=== PATIENT | female | born 1950 | race Caucasian/White ===

== ENCOUNTER 2022-06-02 14:30 | Outpatient (RCR) | payer OTHER, SELFPAY | END 2022-08-30 23:59 | disposition home or self-care (01) | LOC: CCIC 14:30 | PROVIDERS: PCP Physician Assistant Medical; Visit Provider Internal Medicine Hematology & Oncology | DX: C50.912 Malignant neoplasm of unspecified site of left female breast (principal); Z17.0 Estrogen receptor positive status [ER+]; Z79.811 Long term (current) use of aromatase inhibitors; M85.80 Other specified disorders of bone density and structure, unspecified site; R23.2 Flushing | CPT/HCPCS: 99212; 99213; 99214 ==

== ENCOUNTER 2022-07-10 12:41 | Outpatient (CLI) | payer OTHER, SELFPAY ==
--- OUTSIDE RECORDS SUMMARY | 2022-01-16 10:30 | XMS_ITS | Continuity of Care Document ---
:1950 Author Allergies, Adverse Reactions, Alerts No known allergies Social History Smoking Status Status Start Date End Date Date of Observat ion Never smoked tobacco July 7:07am (finding) Additional Data Assigned Sex Female Medications Medication Status Dose Units Route Directions Qty Days Start End Ins tructions Date Date Acetaminophen Active 650 MG PO as needed (Tylenol 8 Hour Arthritis) 650 Mg TAB Anastrozole Active 1 MG PO Daily September (Arimidex) 1 15, Mg TAB 2021 12:12p m Ascorbic Acid Active 500 MG PO Daily 100 (Vitamin C) 500 Mg TAB Calcium Active 600 MG PO Twice A Day 100 Carbonate Cholecalcifer Active 1000 UNIT PO Daily 100 ol (Vitamin D) 1,000 Unit TAB Cyanocobalami Active 100 MCG PO Daily n (Vitamin B12) 100 Mcg TAB Cyclobenzapri Active 5 MG PO Twice A Day 30 ne Hcl as needed Ibuprofen Active 400 MG PO Every 6 100 Hours as needed Loperamide Active 2 MG PO As Needed Hcl (Imodium) 2 Mg CAP Magnesium Active 400 MG PO Twice A Day 100 Alana Oxide 2019 2:56pm Metoprolol Active 50 MG PO Daily 60 Tartrate Multivitamins Active 1 TAB PO Daily 100 (Multivitamin /Minerals) TAB Triamterene/H Active 1 TAB PO Daily 1 ctz (Maxzide) 37.5 Mg/25 Mg TAB Zyquil Active 30 ML PO Bedtime Anastrozole Discontin 1 MG PO Daily October (Arimidex) 1 ued , 15th, Mg TAB 2020 2021 11:49a 12:12pm m Anastrozole Discontin 1 MG PO Daily October (Arimidex) 1 ued 24, th, Mg TAB 2018 2020 3:09pm 11:49am Hydrochloroth Discontin 0 PO Daily 17 August iazide ued 2018 11:53am Metoprolol Discontin 0 PO Twice A Day 60 Janua ry Tartrate ued 2018 11:53am Valacyclovir Discontin 1 GRAMS PO Three Times January uary Hcl (Valtrex) ued A Day , 1 Gm TAB 2017 2018 11:04a 7:10am m Advance Directives Advance Directive Response Recorded Date/Time Does Pt have Health Care No May 09, 008 8:39am Directive? Has patient completed a No July 26 201 9 7:07am Health Care Directive? Insurance Providers Guarantor Denise Munroe Address [address] [place], [place] [id number] Contact Info. Home Phone: Payer Policy Id Coverage Id Subscriber's Subscriber Id Effective E xpiration Name Date Date [facility] [id number] Denise Munroe [id number] [employer]
--- NOTE | 2022-07-10 13:00 | CRLHL7_ITS ---
For Patients: As a result of the Cures Act, medical imaging exams and procedure reports are released immediately into your electronic medical record. You may view this report before your referring provider. If you have questions, please contact your health care provider. BILATERAL SCREENING MAMMOGRAM WITH COMPUTER-AIDED DETECTION AND TOMOSYNTHESIS TECHNIQUE: CC and MLO views were obtained. These mammographic images have been obtained using full-field digital technique. These mammographic images were interpreted with the benefit of computer-aided detection. Breast Tomosynthesis was used in this interpretation. COMPARISON FILM: 07/09/21, 07/08/20, 07/06/19. FINDINGS: There are scattered areas of fibroglandular density. IMPRESSION: There is no radiographic evidence for malignancy. ASSESSMENT: BI-RADS Category 1: Negative RECOMMENDATION: Routine screening mammogram in 1 year. A lay language report of this examination will be provided to the patient. Osorio Cancino M.D. Diagnostic Radiologist [email or web address] DONNA/[email or web address] Transcribed: 9:50 a.m. PT/Dictated by: Osorio Cancino MD @ 07/14/2022 8:23:00 AM (Electronically Signed)
== END 2022-07-10 12:42 | disposition home or self-care (01) ==
PROVIDERS: PCP Physician Assistant Medical; Visit Provider Internal Medicine Hematology & Oncology
DX: Z12.31 Encounter for screening mammogram for malignant neoplasm of breast (principal)
CPT/HCPCS: 77063; 77067

== ENCOUNTER 2023-02-10 14:43 | Outpatient (CLI) | payer MEDICARE, BC, SELFPAY ==
--- NOTE | 2023-02-10 15:00 | CRLHL7_ITS ---
For Patients: As a result of the Cures Act, medical imaging exams and procedure reports are released immediately into your electronic medical record. You may view this report before your referring provider. If you have questions, please contact your health care provider. DXA BONE MINERAL DENSITY STUDY, 02/10/2023 Current height (in): 63.0. Weight (lb): 240.0. Menopause age: 56. Ethnicity: White. 1. Have you had a previous hip or vertebral fracture? No. 2. Have you had any fractures during your adult life which did not result from significant trauma (e.g., auto accident)? No. 3. Did either of your parents have a hip fracture? No. 4. Do you smoke? No. 5. Have you ever taken Glucocorticoids? No. 6. Do you have rheumatoid arthritis? No. 7. Do you have secondary osteoporosis? No. 8. Do you drink 3 or more alcoholic drinks per day? No. 9. Are you being treated for osteoporosis? No. 10. Have you ever taken any of the following medications: Actonel, Evista, Fosamax, Miacalcin, Reclast, Boniva, Forteo, HRT (i.e. estrogen/hormone therapy), Protelos, Prolia, Vitamin D, Calcium, other ??? please specify. ANSWER: Yes, Vitamin D and Calcium. 11. Do you have any of the following medical conditions: Anorexia or bulimia, asthma or emphysema, end stage renal disease, hyperparathyroidism, any seizure disorders, cancer, inflammatory bowel diseases, hysterectomy, other ??? please specify. ANSWER: Yes, Cancer and hysterectomy. 12. What was your maximum height (inches)? 65. 13. Do you perform weight bearing exercise regularly? Yes. 14. Do you regularly consume dairy products? Yes. 15. Do you drink caffeinated beverages? Yes. If female: 16. At what age did your period start? 13. 17. Are you premenopausal? No. 18. How many full term pregnancies have you had? 3. 19. Have you ever missed your period for more than 6 months in a row (not including or menopause)? No. TECHNIQUE: Bone mineral density study was performed using the [employer]. FINDINGS: The results of the study expressed as bone mineral density (BMD) are as follows: Lumbar spine L1, L3, L4: BMD: 0.954 g/cm2. T-score: -0.9. Z-score: 1.3. Neck Left: BMD: 0.732 g/cm2. T-score: -1.1. Z-score: 0.8. Right: BMD: 0.771 g/cm2. T-score: -0.7. Z-score: 1.2. Total Left: BMD: 0.796 g/cm2. T-score: -1.2. Z-score: 0.4. Right: BMD: 0.822 g/cm2. T-score: -1.0. Z-score: 0.6. IMPRESSION: Osteopenia. *Comparison exams done prior to 12/2019 were performed on different unit, [employer] COMPARISON: Compared with scan of 10/10/2020, the bone mineral density has increased by 3.4 percent at the spine and decreased by 5.6 percent at the hip. Osorio Cancino M.D. Diagnostic Radiologist [email or web address] DONNA/[email or web address] JR/Dictated by: Osorio Cancino MD @ 02/11/2023 9:30:00 AM (Electronically Signed)
== END 2023-02-10 14:44 | disposition home or self-care (01) ==
PROVIDERS: PCP Physician Assistant Medical; Visit Provider Internal Medicine Hematology & Oncology
DX: C50.912 Malignant neoplasm of unspecified site of left female breast (principal); M85.89 Other specified disorders of bone density and structure, multiple sites
CPT/HCPCS: 77080

== ENCOUNTER 2023-02-18 06:38 | Day surgery (SDC) | payer MEDICARE, BC, SELFPAY ==
[2023-02-18] MEDS: LACTATED RINGERS 1000 ML 1,000 ML 100 ML IV (06:50)
[2023-02-18 07:21] VITALS: BP 129/84; PULSE 80; RESP 16; TEMP 36.7; O2SAT 95; BMI 45.0
[2023-02-18] MEDS: SODIUM CHLORIDE 0.9 % (FLUSH) 10 ML SYRINGE IVF (07:24)
--- NOTE | 2023-02-18 07:45 | CRLHL7_ITS ---
For Patients: As a result of the Century Cures Act, medical imaging exams and procedure reports are released immediately into your electronic medical record. You may view this report before your referring provider. If you have questions, please contact your health care provider. Indication: PORTACATH PLACEMENT Technique: One fluoroscopic image of the chest. Fluoroscopic time 61.2 seconds. IMPRESSION: Fluoroscopic guidance for Port-A-Cath placement. Dictated by Osorio Cancino MD @ 02/18/2023 9:12:22 AM (Electronically Signed)
[2023-02-18] MEDS: CEFAZOLIN 2 GM INJ IVP (07:55)
[2023-02-18] MEDS: LIDOCAINE 1 % PF 30 ML INJECTION (08:07)
[2023-02-18] MEDS: BUPIVACAINE 0.5% 30 ML INJECTION (08:07)
[2023-02-18] MEDS: 0.9 % SODIUM CHLORIDE 50 ml INJECTION (08:25)
[2023-02-18] MEDS: HEPARIN 500 UNIT/5 ML SYRINGE IVF (08:26)
--- NOTE | 2023-02-18 08:38 | PM.GSPRC ---
Operative Note Pre-op diagnosis: Endometrial carcinoma Post-op diagnosis: Same Type of Procedure: Right port a catheter placement Indications: Patient is a 72-year-old female with new diagnosis endometrial carcinoma. She is being followed by medical oncology, who recommended port a catheter placement for initiation of chemotherapy. Risks and benefits of the procedure were discussed at length the patient. Risks included, but were not limited to: Bleeding, infection, risk of damage to surrounding structures and possible need for additional procedures. All questions and concerns were addressed with patient agreeing to proceed. Procedure Description: After discussing the risks and benefits of the procedure, the patient signed informed consent.? The operative site was marked and the patient was brought to the operating room and placed on the operating table in supine position.? Care was taken to pad the patient's pressure points.?? The patient was then given sedation by anesthesia.?? The operative site was then prepped and draped in the usual sterile fashion.? A time-out was then performed. The patient's right internal jugular vein was visualized using ultrasound. Local anesthetic was injected into the neck skin above the vein. A skin chandler was made with an 11 blade. The vein was accessed percutaneously via Seldinger technique using ultrasound guidance. Placement of the wire was confirmed with C-arm. Next local anesthetic was injected into the skin below the clavicle and along the proposed tract to the neck incision. A skin incision was then made with a 15 blade and a pocket created in the chest wall with cautery. A tunneler was then used to thread the catheter from the chest wall pocket to the neck incision. Once this was done fluoroscopy was brought into the field. Over the wire the tract was dilated using fluoroscopy. The wire and the dilator were then removed leaving the sheath intact in the vein. Through this the catheter was threaded. Using fluoroscopy the catheter was positioned into the distal SVC. The catheter was noted to flush and aspirate easily. The catheter was then connected to the port. The port was placed in the pocket and secured in place with 2 0 Prolene stay suture. It was noted to flush and aspirate easily. This was then locked with heparinized saline. The skin was closed with absorbable suture. Sterile dressings were applied. Instrument sponge and needle counts were correct at the end of the case. The patient was woken and taken to the PACU in stable condition. Findings: Compressible right internal jugular vein. Anesthesia: MAC and local Surgeon: Edna Canchola MD Estimated blood loss (mL): 5 Condition: stable Disposition: same day
[2023-02-18 08:39] VITALS: BP 127/71; PULSE 70; RESP 16; TEMP 36.3; O2SAT 96
--- NOTE | 2023-02-18 08:42 | W.ANESCHARGE ---
Anesthesia Charges Start Date/Time Anesthesia Start Date: 02/18/23 Anesthesia Start Time: 07:49 Stop Date/Time Anesthesia Stop Date: 02/18/23 Anesthesia Stop Time: 08:42 Summary Extremes of Age - Over 70 or under 1: MDA
--- NOTE | 2023-02-18 08:44 | W.ANESCHARGE ---
Anesthesia Charges Start Date/Time Anesthesia Start Date: 02/18/23 Anesthesia Start Time: 07:49 Stop Date/Time Anesthesia Stop Date: 02/18/23 Anesthesia Stop Time: 08:42 Summary Extremes of Age - Over 70 or under 1: [employer]
[2023-02-18 09:19] VITALS: BP 127/70; PULSE 77; RESP 16
== END 2023-02-18 09:30 | disposition home or self-care (01) ==
PROVIDERS: PCP Physician Assistant Medical; Visit Provider Surgery
PROC: (CPT 36561; principal; 2023-02-18 07:45)
DX: Z45.2 Encounter for adjustment and management of vascular access device (principal); C54.1 Malignant neoplasm of endometrium
CPT/HCPCS: 36561; 00532; 71045; 76000; 99100; C1788; J0665; J0690; J1100; J1642; J2001; J2405; J2704; J3010; J7120

== ENCOUNTER 2023-04-07 13:30 | Outpatient (RCR) | payer MEDICARE, OTHER, BC, SELFPAY ==
--- NOTE | 2023-02-08 14:18 | ONC.NURNOTE ---
New chemo start teaching with patient and her daughter Reviewed Treatment schedule and medications, including premeds and neulasta reviewed possible side effects, after hours management, self care at home, reviewed new treatment binder contents questions addressed consents and YOLA signed
--- NOTE | 2023-02-08 14:22 | ONC.NURNOTE ---
PSDS +1 no problems listed no SS consult imitated- patient declined
--- NOTE | 2023-02-11 10:57 | URNOTE ---
Received request for prior auth for Carboplatin ([id number]), Paclitaxol ([id number]), Emend ([id number]), Aloxi ([id number]) and Pegfilgrastim ([id number]). Pt has medicare primary. Prior authorization is not required as services are based on medical necessity and follow medicare guidelines.
--- NOTE | 2023-02-12 14:38 | ONC.NURNOTE ---
Going through authorizations it was noted that patient was not scheduled. She notes that she is waiting to hear back from surgery for her port placement prior to starting chemotherapy. She was instructed to contact our office if she does not hear from them by the end of Wednesday.
[2023-02-24 08:51] LABS: Basophils Absolute Auto 0.06 K/uL (0.00-0.30); Basophils Percent Auto 1.1 % (0.0-3.0); Eosinophils Absolute Auto 0.27 K/uL (0.00-0.50); Eosinophils Percent Auto 5.1 % (0.0-7.0); Hematocrit 37.8 % (33.0-51.0); Immature Granulocytes Abs Auto 0.01 K/uL (0.00-0.30); Immature Granulocytes Pct Auto 0.2 %; Lymphocytes Absolute Auto 1.13 K/uL (0.90-2.90); Lymphocytes Percent Auto 21.5 % (20-44); Mean Corpuscular HGB Conc 32 gm/dL (32-36); Mean Corpuscular Hemoglobin 29 pg (26-34); Mean Corpuscular Volume 92 fL (80-100); Neutrophils Absolute Auto 3.31 K/uL (1.7-7.0); Neutrophils Percent Auto 63.1 % (42.0-72.0); Platelet Count* 205 K/uL (140-440); RDW Coefficient of Variation % 12.6 % (11.5-15.5); Red Blood Count 4.11 m/uL (4.00-5.20); Slide Review Reflex No; White Blood Count* 5.25 K/uL (4.50-11.00)
[2023-02-24 08:59] VITALS: BP 119/75; PULSE 77; RESP 16; TEMP 36.6; O2SAT 94
[2023-02-24 09:09] LABS: Albumin* 3.8 g/dL (3.3-5.0); Chloride* 101 mmol/L (96-114)
[2023-02-24 09:10] LABS: Potassium* 3.2 mmol/L (3.6-5.1); Sodium* 135 mmol/L (135-149)
[2023-02-24 09:12] LABS: Bilirubin Total* 0.6 mg/dL (0.1-1.5); Carbon Dioxide* 25 mmol/L (20-32); Estimated Glomerular Filt Rate 60 ml/min
[2023-02-24 09:13] LABS: Alanine Aminotransferase* 21 U/L (4-35); Alkaline Phosphatase* 75 U/L (40-150); Aspartate Amino Transferase* 24 U/L (12-35); Blood Urea Nitrogen* 16 mg/dL (7-30); Calcium* 9.4 mg/dL (8.4-10.6); Glucose* 99 mg/dL (60-115); Total Protein* 6.6 g/dL (6.0-8.3)
[2023-02-24] MEDS: dexAMETHasone 20 MG in 0.9 % SODIUM CHLORIDE 100 ml 100 ML 408 MG IVPB (10:22)
[2023-02-24] MEDS: PALONOSETRON 0.25 MG/5 ML inj IV (10:22)
[2023-02-24] MEDS: FAMOTIDINE 20 MG, diphenhydrAMINE 50 MG in 0.9 % SODIUM CHLORIDE 100 ml 100 ML 309 MG IVPB (10:45)
[2023-02-24] MEDS: FOSAPREPITANT 150 MG inj 150 MG in 0.9 % SODIUM CHLORIDE 250 ml 250 ML 510 MG IVPB (11:09)
--- NOTE | 2023-02-24 15:53 | ONC.NURNOTE ---
Pt here for nova 1 Taxol/Carbo. Pt tolerated infusion well without difficulty. Pt given calendar on when to take antiemetics. Script for potassium sent to pt's pharmacy by Crystal Pandey APRN due to potassium of 3.2. Pt to return in 1 week for BMP draw. Pt and her daughter verbalized understanding of plan of care.
[2023-02-25 15:12] VITALS: BP 129/76; PULSE 94; RESP 18; TEMP 36.6; O2SAT 98
[2023-02-25] MEDS: PEGFILGRASTIM 6 MG/0.6 ML SYRINGE SUBCUT (15:32)
--- NOTE | 2023-02-25 15:38 | ONC.NURNOTE ---
Addendum entered by Jessy Parham RN 02/25/23 15:45: Checked in with pt to see how she was feeling after receiving 1st Taxol/Carbo yesterday. See note from Katalina. Pt is taking antiemetics as recommended. Denies fever, nausea. Face slightly flushed today. Pt instructed to call if she has any questions or concerns. Original Note: Patient stated she is up 9lbs in 1 week. Denies shortness of breath. Vital signs within normal limits. Stated she has been drinking a lot more lately to stay hydrated. Also got a lot of fluids with her infusions yesterday. Noticed more ankle swelling today. Is on a diuretic. Recommended patient notify her PCP about this. Patient agreeable to this plan.
[2023-02-26 03:55] LABS: Cancer Antigen 125 13 U/mL (<=38)
[2023-03-03 11:42] LABS: Sodium* 139 mmol/L (135-149)
[2023-03-03 12:00] LABS: Chloride* 98 mmol/L (96-114)
[2023-03-03 12:03] LABS: Blood Urea Nitrogen* 26 mg/dL (7-30); Calcium* 10.5 mg/dL (8.4-10.6); Carbon Dioxide* 28 mmol/L (20-32); Creatinine* 1.1 mg/dL (0.5-1.5); Estimated Glomerular Filt Rate 54 ml/min; Glucose* 113 mg/dL (60-115)
--- NOTE | 2023-03-03 14:23 | PC.NURSE ---
Addendum entered by Nicki Rios RN 03/08/23 08:38: In addition to items discussed in below note, RN instructed pt to stop oral Potassium due to potassium lab at 5.0. Pt verbalized understanding. Original Note: Pt present at [facility] for repeat labs (BMP). Denise reports the following symptoms: Diarrhea - Started 8/15 PM. Pt took Imodium x 1 tab at 0700 and 0900 today. No stools since 1000 today. RN did teaching about use of Imodium. Mouth sore (1) - Using baking soda rinse. RN recommended adding salt to the rinse. The one mouth sore is not impacting her oral intake. Heartburn - Using TUMS occasionally. Noted significant increase in heartburn since chemo. Discussed with Crystal Gupta APRN. MAR reviewed. Recommended pt get OTC Pepcid and use until her next visit with MD and discuss further. Severe knee pain on Wednesday and Wednesday - Pt using Claritin after Neulasta injection. Asked about Ibuprofen and Tylenol use. RN did teaching about how to use those OTC medications. Also encouraged pt to discuss with MD prior to next treatment. Extreme hot flashes - Discussed wearing cotton or moisture wicking clothing to bed. Pt has a ceiling fan. Offered suggestion of Soma Cool Nights pajamas. Fatigue - Much improved today. Was VERY fatigued Wednesday-Wednesday. Support offered.
[2023-03-18 08:14] LABS: Basophils Percent Auto 0.9 % (0.0-3.0); Eosinophils Percent Auto 0.9 % (0.0-7.0); Hematocrit 36.6 % (33.0-51.0); Hemoglobin* 11.7 gm/dL (12.0-16.0); Immature Granulocytes Pct Auto 0.5 %; Lymphocytes Percent Auto 36.4 % (20-44); Mean Corpuscular HGB Conc 32 gm/dL (32-36); Mean Corpuscular Hemoglobin 30 pg (26-34); Mean Corpuscular Volume 93 fL (80-100); Neutrophils Percent Auto 51.3 % (42.0-72.0); Platelet Count* 359 K/uL (140-440); RDW Coefficient of Variation % 13.6 % (11.5-15.5); Red Blood Count 3.94 m/uL (4.00-5.20); White Blood Count* 4.42 K/uL (4.50-11.00)
[2023-03-18 08:23] LABS: Slide Review Reflex No
[2023-03-18 08:26] LABS: Albumin* 3.9 g/dL (3.3-5.0); Chloride* 104 mmol/L (96-114); Potassium* 3.4 mmol/L (3.6-5.1); Sodium* 142 mmol/L (135-149)
[2023-03-18 08:29] LABS: Alanine Aminotransferase* 24 U/L (4-35); Alkaline Phosphatase* 84 U/L (40-150); Anion Gap 11 mEq/L (7-15); Aspartate Amino Transferase* 28 U/L (12-35); Bilirubin Total* 0.4 mg/dL (0.1-1.5); Blood Urea Nitrogen* 24 mg/dL (7-30); Carbon Dioxide* 27 mmol/L (20-32); Creatinine* 1.2 mg/dL (0.5-1.5); Estimated Glomerular Filt Rate 48 ml/min; Glucose* 106 mg/dL (60-115); Total Protein* 6.8 g/dL (6.0-8.3)
[2023-03-18 08:30] LABS: Calcium* 10.3 mg/dL (8.4-10.6)
[2023-03-18] MEDS: PALONOSETRON 0.25 MG/5 ML inj IV (09:38)
[2023-03-18] MEDS: dexAMETHasone 20 MG in 0.9 % SODIUM CHLORIDE 100 ml 100 ML 408 MG IVPB (09:38)
[2023-03-18] MEDS: FOSAPREPITANT 150 MG inj 150 MG in 0.9 % SODIUM CHLORIDE 250 ml 250 ML 780 MG IVPB (10:04)
[2023-03-18] MEDS: FAMOTIDINE 20 MG, diphenhydrAMINE 50 MG in 0.9 % SODIUM CHLORIDE 100 ml 100 ML 309 MG IVPB (10:30)
[2023-03-18 11:20] VITALS: BP 146/86; PULSE 67; RESP 20; O2SAT 97
[2023-03-18 11:25] VITALS: BP 117/66; PULSE 73; RESP 16; TEMP 36.6; O2SAT 100
[2023-03-18] MEDS: METHYLPREDNISOLONE SOD SUCC 40 MG/ML IVP (11:42)
[2023-03-18 11:46] VITALS: BP 117/75; PULSE 76; RESP 16; O2SAT 96
[2023-03-18 12:11] VITALS: BP 126/85; PULSE 64; RESP 16; TEMP 36.4; O2SAT 97
[2023-03-18 12:37] VITALS: BP 122/75; PULSE 68; RESP 16; O2SAT 93
[2023-03-18 12:59] VITALS: BP 129/79; PULSE 66; RESP 16; O2SAT 93
--- NOTE | 2023-03-18 14:31 | URNOTE ---
Received request for prior auth for Granix. Pt has medicare and [employer]. Prior authorization is not required as services are based on medical necessity and follow medicare guidelines.
[2023-03-18] MEDS: SODIUM CHLORIDE 0.9% IVPB (15:41)
[2023-03-18] MEDS: TUBING SECONDARY IVPB (15:41)
[2023-03-18] MEDS: CARBOPLATIN IVPB (15:41)
--- NOTE | 2023-03-19 07:52 | ONC.NURNOTE ---
Late entry: Pt here for Cycle 2 Taxol/Carbo on 03/18/23. Approximately 15 min into Taxol infusion pt had call light on, face flushed and hot, pt c/o back pain, chils. Taxol stopped, NS started. Biomedical Engineering Aide notified Crystal Burnett APRN immediately and she assessed pt at bedside. VSS remained stable. Solucortef 40mg IV once, symptoms completely resolved after 30min. Taxol restarted at 50%, and increased gradually to max rate. Pt tolerated remainder of Taxol infusion without difficulty.
[2023-03-19 15:00] VITALS: BP 131/74; PULSE 92; RESP 16; TEMP 36.1; O2SAT 96
[2023-03-19] MEDS: TBO-FILGRASTIM 480 MCG/0.8 ML SYRINGE SUBCUT (15:41)
--- NOTE | 2023-03-19 15:47 | ONC.NURNOTE ---
education verbal and written before giving granix. consent signed.
[2023-03-23 15:24] VITALS: BP 102/72; PULSE 102; RESP 16; TEMP 36.1; O2SAT 95
[2023-03-23] MEDS: TBO-FILGRASTIM 480 MCG/0.8 ML SYRINGE SUBCUT (15:28)
[2023-03-24 15:20] VITALS: BP 128/79; PULSE 95; RESP 16; TEMP 36.4; O2SAT 96
[2023-03-24] MEDS: TBO-FILGRASTIM 480 MCG/0.8 ML SYRINGE SUBCUT (15:41)
[2023-03-24 16:08] LABS: Potassium* 4.6 mmol/L (3.6-5.1)
--- NOTE | 2023-03-25 10:11 | ONC.NURNOTE ---
Potassium level from 03/24/23 4.6 and reviewed by Crystal Burnett APRN. Per Crystal, pt instructed to take 10meq of potassium every other day. Will recheck labs with chemo labs in 2 weeks. Pt instructed to call if she has any concerns.
[2023-04-07 13:58] LABS: Basophils Absolute Auto 0.04 K/uL (0.00-0.30); Basophils Percent Auto 0.8 % (0.0-3.0); Eosinophils Absolute Auto 0.02 K/uL (0.00-0.50); Eosinophils Percent Auto 0.4 % (0.0-7.0); Hemoglobin* 10.3 gm/dL (12.0-16.0); Lymphocytes Absolute Auto 1.31 K/uL (0.90-2.90); Lymphocytes Percent Auto 26.4 % (20-44); Mean Corpuscular HGB Conc 33 gm/dL (32-36); Mean Corpuscular Hemoglobin 30 pg (26-34); Mean Corpuscular Volume 90 fL (80-100); Monocytes Percent Auto 6.8 % (0.0-11.0); Neutrophils Absolute Auto 3.26 K/uL (1.7-7.0); Neutrophils Percent Auto 65.6 % (42.0-72.0); Platelet Count* 58 K/uL (140-440); RDW Coefficient of Variation % 14.4 % (11.5-15.5); Red Blood Count 3.45 m/uL (4.00-5.20); Slide Review Reflex No; White Blood Count* 4.97 K/uL (4.50-11.00)
[2023-04-07 14:12] LABS: Chloride* 103 mmol/L (96-114); Potassium* 3.7 mmol/L (3.6-5.1); Sodium* 139 mmol/L (135-149)
[2023-04-07 14:14] LABS: Creatinine* 1.2 mg/dL (0.5-1.5); Estimated Glomerular Filt Rate 48 ml/min
[2023-04-07 14:15] LABS: Alanine Aminotransferase* 25 U/L (4-35); Alkaline Phosphatase* 84 U/L (40-150); Anion Gap 9 mEq/L (7-15); Aspartate Amino Transferase* 26 U/L (12-35); Bilirubin Total* 0.7 mg/dL (0.1-1.5); Blood Urea Nitrogen* 25 mg/dL (7-30); Carbon Dioxide* 27 mmol/L (20-32); Glucose* 112 mg/dL (60-115)
[2023-04-07 14:16] LABS: Calcium* 9.9 mg/dL (8.4-10.6)
== END 2023-04-13 23:59 | disposition home or self-care (01) ==
LOC: CCIC 13:30
PROVIDERS: Clinical Nurse Specialist; PCP Physician Assistant Medical; Referring Provider Physician Assistant Medical; Visit Provider Internal Medicine Hematology & Oncology
DX: C50.912 Malignant neoplasm of unspecified site of left female breast (principal); C54.1 Malignant neoplasm of endometrium; Z17.0 Estrogen receptor positive status [ER+]; Z79.811 Long term (current) use of aromatase inhibitors; M85.80 Other specified disorders of bone density and structure, unspecified site; R12 Heartburn; G47.00 Insomnia, unspecified; E87.6 Hypokalemia; R23.2 Flushing
CPT/HCPCS: 36415; 36591; 80048; 80053; 84132; 85025; 86304; 96372; 96376; 96413; 96415; 96417; 99202; 99211; 99212; 99213; 99214; 99215; J2506; J1100; J1200; J1447; J1453; J2469; J2920; J7050; J9045; J9267; S0028

== ENCOUNTER 2023-06-19 11:03 | Emergency (ER) | payer MEDICARE, BC, SELFPAY ==
[2023-06-19 11:15] VITALS: BP 103/70; PULSE 102; RESP 12; TEMP 35.6; O2SAT 97; BMI 41.2
--- NOTE | 2023-06-19 11:32 | CRLHL7_ITS ---
For Patients: As a result of the Century Cures Act, medical imaging exams and procedure reports are released immediately into your electronic medical record. You may view this report before your referring provider. If you have questions, please contact your health care provider. INDICATION: Two views of the chest. COMPARISON: Correlation made with fluoroscopic images from the port placement dated 02/18/2023. TECHNIQUE: Two views of the chest. FINDINGS: A right internal jugular vein approach port is present, terminating in the region of the confluence of the internal jugular vein with the subclavian vein proximal to the right brachiocephalic vein. Cardiac and mediastinal contours appear unchanged. No new focal or diffuse pulmonary opacities. Cholecystectomy change. Degenerative changes in the spine. IMPRESSION: 1. No acute pulmonary opacities. 2. Tip of right IJ vein approach port terminates at the confluence of the internal jugular vein with the subclavian vein in the proximal right brachiocephalic vein. Dictated by Nino Sebastian MD @ 06/19/2023 1:00:49 PM (Electronically Signed)
--- NOTE | 2023-06-19 11:33 | CRLHL7_ITS ---
For Patients: As a result of the Century Cures Act, medical imaging exams and procedure reports are released immediately into your electronic medical record. You may view this report before your referring provider. If you have questions, please contact your health care provider. INDICATION: Dizziness. TECHNIQUE: Noncontrast CT images acquired through the brain. COMPARISON: None. FINDINGS: Mild diffuse cerebral volume loss. No mass effect or midline shift. The royal-white differentiation is maintained. No acute intracranial hemorrhage or pathologic extra-axial fluid collection. Scattered hypoattenuation in the supratentorial white matter, typical for mild chronic microvascular ischemic changes. Intracranial atherosclerotic calcifications. The globes are symmetric. The calvarium is intact. Moderate mucosal disease and marked mucoperiosteal wall thickening involving the left maxillary sinus. Mastoid air cells are clear. Advanced right mandibular joint degenerative changes. IMPRESSION: No acute intracranial hemorrhage or mass effect. Please note that all CT scans at this facility use dose modulation, iterative reconstruction, and/or weight-based dosing when appropriate to reduce radiation dose to as low as reasonably achievable. Dictated by Brian Fuentes MD @ 06/19/2023 12:37:54 PM (Electronically Signed)
--- NOTE | 2023-06-19 11:37 | ED.SOB ---
HPI - SOB/Dyspnea General Date Seen: 06/19/23 Chief Complaint: Shortness of Breath/Dyspnea Stated Complaint: Shortness of breath, cancer pt Time Seen by Provider: 06/19/23 11:09 Source: patient Mode of arrival: ambulatory Limitations: no limitations History of Present Illness HPI Narrative: Patient is a 72-year-old female presenting for shortness of breath and dizziness. She states the symptoms started this morning. She does states she has a history of uterine cancer for which she is on chemotherapy for. Last round of chemotherapy was 05/31/2023. She states she has had symptoms like this multiple times in the past over the past year and she states each time she needed a blood transfusion and then was discharged home from the transfusion center. States dizziness feels like she is swaying [id number] like on about. Denies lightheadedness. She is feeling asymptomatic at rest. Does know symptoms seem to get worse when she walks around. Denies fevers, chills, chest pain, abdominal pain, weakness, numbness. Related Data Home Medications Medication Instructions Recorded Confirmed ascorbate calcium (vitamin C) 500 500 mg PO QDAY 03/03/22 05/31/23 mg tablet calcium carbonate 600 mg calcium 600 mg PO BID 03/03/22 05/31/23 (1,500 mg) tablet (Calcium) cholecalciferol (vitamin D3) 10 10 mcg PO QDAY 03/03/22 05/31/23 mcg (400 unit) tablet hydrochlorothiazide 25 mg tablet 25 mg PO DAILY 03/03/22 06/19/23 magnesium 250 mg tablet 250 mg PO QDAY 03/03/22 05/31/23 melatonin 5 mg capsule 5 mg PO QHS PRN 03/03/22 05/31/23 metoprolol tartrate 75 mg tablet 75 mg PO BID 03/03/22 06/19/23 multivitamin 1 tab PO QAM 03/03/22 05/31/23 loperamide 2 mg tablet (Imodium 2 mg PO Q6H PRN 10/15/22 06/19/23 A-D) psyllium husk (with sugar) 3.4 1 tbsp PO QDAY 10/15/22 05/31/23 gram/12 gram oral powder (Metamucil (with sugar)) acetaminophen 500 mg tablet 1,000 mg PO Q6H PRN 03/18/23 06/19/23 (Tylenol Extra Strength) famotidine 20 mg tablet (Pepcid) 20 mg PO BID PRN 03/18/23 06/19/23 ibuprofen 200 mg tablet (Advil) 400 mg PO Q6H 03/18/23 06/19/23 loratadine 10 mg tablet (Claritin) 10 mg PO QDAY PRN 03/18/23 06/19/23 Previous Rx's Medication Instructions Recorded anastrozole 1 mg tablet 1 mg PO DAILY #90 tabs 10/07/22 ondansetron HCl 4 mg tablet 4 mg PO Q8H PRN nausea and 02/08/23 vomiting #60 tabs zolpidem 5 mg tablet (Ambien) 5 mg PO QHS PRN insomnia #30 tabs 03/18/23 potassium chloride 20 mEq 20 meq PO BID #20 tabs 05/31/23 tablet,extended release meclizine 25 mg tablet 25 mg PO QID PRN dizziness #20 tabs 06/19/23 Allergies Allergy/AdvReac Type Severity Reaction Status Date / Time cat dander Allergy Mild Verified 06/19/23 11:20 Review of Systems Status of ROS: Reports: 10 or more systems reviewed and unremarkable except as noted in History and below [facility] Medical History Endometrial cancer ?C54.1 - Malignant neoplasm of endometrium (ICD-10) History of radiation therapy ?Z92.3 - Personal history of irradiation (ICD-10) Surgical History S/P lumpectomy, left breast (~07/26/18) ?Z98.890 - Other specified postprocedural states (ICD-10) Social History Smoking Status: Former smoker Do you use any of these nicotine containing products: None How often do you have a drink containing alcohol: monthly or less AUDIT-C Alcohol total score: 1 Non-prescribed substance use: denies use Caffeine: Yes Exam Narrative: Exam Narrative: Const: Well-nourished, Well-developed, in now distress Eyes: PERRL, no conjunctival injection, and symmetrical lids HENT: Atraumatic external nose and ears. Moist mucous membranes. Neck: Symmetric, trachea midline, No thyromegaly. CVS: RRR, No murmurs or gallops. Peripheral pulses 2+ and equal in all extremities RESP: Unlabored respiratory effort. Clear to auscultation bilaterally. GI: Nontender/Nondistended, No rebound or guarding. MSK:Extremities w/o deformity, Normal Active ROM Skin: Warm, Dry. No rashes or lesions. Neuro: Normal Muscle tone, No focal neurological deficits. Psych: Awake, Alert, & Oriented x3. Appropriate mood and affect. Const: Vital Signs, click to edit/add: Vital Signs - 24 hr 06/19/23 11:15 06/19/23 14:12 06/19/23 14:13 Temperature 96.1 F L Pulse Rate 73 74 Pulse Rate [Pulse Oximeter] 102 H Respiratory Rate 12 Blood Pressure 107/67 Blood Pressure [Ri ght Upper Arm] 103/70 Pulse Oximetry 97 97 98 Oxygen Delivery Me thod Room Air 06/19/23 14:14 06/19/23 14:30 06/19/23 14:31 Temperature Pulse Rate 76 71 77 Pulse Rate [Pulse Oximeter] Respiratory Rate Blood Pressure 103/83 Blood Pressure [Ri ght Upper Arm] Pulse Oximetry 98 96 97 Oxygen Delivery Me thod Course Vital Signs Vital signs: Initial Vital Signs Temperature 96.1 F L 06/19/23 11:15 Temperature Source Temporal Artery Scan 06/19/23 11:15 Pulse Rate 102 H 06/19/23 11:15 Respiratory Rate 12 06/19/23 11:15 Blood Pressure 103/70 06/19/23 11:15 Blood Pressure Mean 81 06/19/23 11:15 Blood Pressure Position Sitting 06/19/23 11:15 Pulse Oximetry 97 06/19/23 11:15 Oxygen Delivery Method Room Air 06/19/23 11:15 Vital Signs Temperature 96.1 F L 06/19/23 11:15 Pulse Rate 102 H 06/19/23 11:15 Respiratory Rate 12 06/19/23 11:15 Blood Pressure 103/70 06/19/23 11:15 Pulse Oximetry 97 06/19/23 11:15 Oxygen Delivery Method Room Air 06/19/23 11:15 Temperature 96.1 F L 06/19/23 11:15 Pulse Rate 77 06/19/23 14:31 Respiratory Rate 12 06/19/23 11:15 Blood Pressure 103/83 06/19/23 14:31 Pulse Oximetry 97 06/19/23 14:31 Oxygen Delivery Method Room Air 06/19/23 11:15 MDM - SOB/Dyspnea MDM Narrative Medical decision making narrative: Patient is a 72-year-old female presenting emergency department for dizziness and shortness of breath. States the symptoms female to the room mild but was concerned they would worsen like previously she came to be evaluated. She states previously she has had the symptoms she had have a blood transfusion and symptoms would be improvement she would be discharged from the transfusion center. Describes the dizziness as if she is on a boat. Is not symptomatic at this time while at rest. Denies any injuries to her head. Differential includes electrolyte abnormalities, anemia, infection, intracranial abnormality. She is on chemotherapy for her cancer and PE cannot be ruled out. Cbc showed a white cell count of 3.2, hemoglobin of 9, platelet count of 80. This all appeared to be around her baseline and is not requiring transfusion at this time. Troponin within normal limits. Urinalysis shows no signs of infection. CMP shows no concerning abnormalities. We will do a CTA of the chest to rule out PE at this time. Patient's vital signs are within normal limits under than some very mild tachycardia when she 1st arrived and does not clinically appear dehydrated. Would do a CTA which shows no acute abnormalities. She is still having some mild dizziness when up and walking around. She does not want any medication for that right now but was agreeable for prescription of meclizine if she needs it. She is otherwise doing well at this time I feel safe for discharge. Lab Data Labs: Lab Results 06/19/23 06/19/23 Range/Units 12:05 13:01 WBC 3.20 L (4.50-11.00) K/uL RBC 2.66 L (4.00-5.20) m/uL Hgb 9.0 L (12.0-16.0) gm/dL Hct 27.4 L (33.0-51.0) % MCV 103 H (80-100) fL MCH 34 (26-34) pg MCHC 33 (32-36) gm/dL RDW Coeff of Quirino 20.8 H (11.5-15.5) % Plt Count 80 L (140-440) K/uL Neut % (Auto) 49.4 (42.0-72.0) % Lymph % (Auto) 32.2 (20-44) % [place] % (Auto) 15.9 H (0.0-11.0) % Eos % (Auto) 1.3 (0.0-7.0) % Baso % (Auto) 0.9 (0.0-3.0) % Neut # (Auto) 1.60 L (1.7-7.0) K/uL Lymph # (Auto) 1.00 (0.90-2.90) K/uL [place] # (Auto) 0.50 (0.00-0.90) K/UL Eos # (Auto) 0.00 (0.00-0.50) K/uL Baso # (Auto) 0.00 (0.00-0.30) K/uL Abs Immat Gran (auto) 0.00 (0.00-0.30) K/uL Imm/Tot Granulo (auto) 0.3 % Sodium 139 (135-149) mmol/L Potassium 3.6 (3.6-5.1) mmol/L Chloride 106 (96-114) mmol/L Carbon Dioxide 25 (20-32) mmol/L Anion Gap 8 (7-15) mEq/L BUN 21 (7-30) mg/dL Creatinine 1.1 (0.5-1.5) mg/dL Estimated Creat Clear 37.10 Estimated GFR 54 ml/min Glucose 100 (60-115) mg/dL Calcium 9.5 (8.4-10.6) mg/dL Total Bilirubin 0.5 (0.1-1.5) mg/dL AST 25 (12-35) U/L ALT 18 (4-35) U/L Alkaline Phosphatase 90 (40-150) U/L Troponin I < 0.01 L (0.01-0.04) ng/mL Total Protein 6.9 (6.0-8.3) g/dL Albumin 4.1 (3.3-5.0) g/dL Urine Color Yellow (Yellow) Urine Appearance Clear (Clear) Urine pH 8.5 (5.0-8.5) Ur Specific [place] 1.015 (1.000-1.030) Urine Protein Negative (Negative) Urine Glucose (UA) Negative (Negative) Urine Ketones Negative (Negative) Urine Blood Negative (Negative) Urine Nitrite Negative (Negative) Urine Bilirubin Negative (Negative) Urine Urobilinogen 0.2 (0.2-1.0) Ur Leukocyte Esterase Negative (Negative) Urine RBC 0-2 (0-2) Urine WBC 0-2 (0-5) Ur Squamous Epith Cells Few (None-Few) Urine Bacteria None (None) SARS-CoV-2 (PCR) Negative SARS-CoV-2 (Negative) Influenza Type A (PCR) Negative PCR FLU A (Negative) Influenza Type B (PCR) Negative PCR FLU B (Negative) Imaging Data Chest x-ray: Radiologist's impression: 1. No acute pulmonary opacities. 2. Tip of right IJ vein approach port terminates at the confluence of the internal jugular vein with the subclavian vein in the proximal right brachiocephalic vein. Dictated by Nino Sebastian MD @ 06/19/2023 1:00:[address] scan - head: Radiologist's impression: No acute intracranial hemorrhage or mass effect. Please note that all CT scans at this facility use dose modulation, iterative reconstruction, and/or weight-based dosing when appropriate to reduce radiation dose to as low as reasonably achievable. Dictated by Brian Fuentes MD @ 06/19/2023 12:37:54 PM CTA chest: Radiologist's impression: 1. No pulmonary emboli. 2. No evidence on CT for right heart strain. 3. Stable cystic splenic lesion. 4. No thoracic lymphadenopathy. 5. Stable juxtapleural pulmonary nodule adjacent to the right major fissure. An intrapulmonary lymph node is favored. Dictated by Skip Brooks MD @ 06/19/2023 2:46:47 PM Please note that all CT scans at this facility use dose modulation, iterative reconstruction, and/or weight-based dosing when appropriate to reduce radiation dose to as low as reasonably achievable. Dictated by: Skip Brooks MD @ 06/19/2023 14:47:00 ECG Data Attestation: I personally reviewed and interpreted this ECG as follows: Prior ECG tracings: not available for review Interpretation: Normal sinus rhythm with a rate of 84 beats per minute, normal intervals, normal axis, no ST or T-wave abnormalities Discharge Plan Discharge Clinical Impression: Dizziness Patient Disposition: Home, Self-Care Condition: Stable Instructions: Dizziness (ED) Additional Instructions: For your dizziness your prescribed meclizine which is also known as Antivert. Use as needed for your dizziness. Do not take the meclizine at the same time you take your oral potassium. Wait 30 minutes to an hour Follow-up with the primary care provider or your oncologist. Activity Level: No Restrictions Discharge Diet: Regular Prescriptions: New meclizine 25 mg tablet 25 mg PO QID PRN (Reason: dizziness) Qty: 20 0RF No Action metoprolol tartrate 75 mg tablet 75 mg PO BID hydrochlorothiazide 25 mg tablet 25 mg PO DAILY multivitamin Tablet 1 tab PO QAM calcium carbonate [Calcium 600] 600 mg calcium (1,500 mg) tablet 600 mg PO BID cholecalciferol (vitamin D3) 10 mcg (400 unit) tablet 10 mcg PO QDAY ascorbate calcium (vitamin C) 500 mg tablet 500 mg PO QDAY melatonin 5 mg capsule 5 mg PO QHS PRN magnesium 250 mg tablet 250 mg PO QDAY potassium chloride 20 mEq tablet extended release 20 meq PO BID Qty: 20 0RF Metamucil (with sugar) 3.4 gram/12 gram powder 1 tbsp PO QDAY loperamide [Imodium A-D] 2 mg tablet 2 mg PO Q6H PRN anastrozole 1 mg tablet 1 mg PO DAILY Qty: 90 3RF Hold Instructions: md order ondansetron HCl 4 mg tablet 4 mg PO Q8H PRN (Reason: nausea and vomiting) Qty: 60 1RF acetaminophen [Tylenol Extra Strength] 500 mg tablet 1,000 mg PO Q6H PRN ibuprofen [Advil] 200 mg tablet 400 mg PO Q6H loratadine [Claritin] 10 mg tablet 10 mg PO QDAY PRN Hold Instructions: take only after infusions famotidine [Pepcid] 20 mg tablet 20 mg PO BID PRN zolpidem [Ambien] 5 mg tablet 5 mg PO QHS PRN (Reason: insomnia) Qty: 30 0RF Follow Up/Referrals: Meena Antoine PA-C [Primary Care Provider] - Stand Alone Forms: [facility] [employer] Info Instructions
[2023-06-19 12:18] LABS: Basophils Percent Auto 0.9 % (0.0-3.0); Eosinophils Percent Auto 1.3 % (0.0-7.0); Hematocrit 27.4 % (33.0-51.0); Immature Granulocytes Pct Auto 0.3 %; Lymphocytes Percent Auto 32.2 % (20-44); Mean Corpuscular HGB Conc 33 gm/dL (32-36); Mean Corpuscular Hemoglobin 34 pg (26-34); Mean Corpuscular Volume 103 fL (80-100); Monocytes Percent Auto 15.9 % (0.0-11.0); Neutrophils Percent Auto 49.4 % (42.0-72.0); Platelet Count* 80 K/uL (140-440); RDW Coefficient of Variation % 20.8 % (11.5-15.5); Red Blood Count 2.66 m/uL (4.00-5.20)
[2023-06-19 12:25] LABS: Slide Review Reflex No
[2023-06-19 12:32] LABS: Albumin* 4.1 g/dL (3.3-5.0); Chloride* 106 mmol/L (96-114); Potassium* 3.6 mmol/L (3.6-5.1); Sodium* 139 mmol/L (135-149)
[2023-06-19 12:34] LABS: Creatinine* 1.1 mg/dL (0.5-1.5); Estimated Glomerular Filt Rate 54 ml/min
[2023-06-19 12:35] LABS: Alanine Aminotransferase* 18 U/L (4-35); Alkaline Phosphatase* 90 U/L (40-150); Anion Gap 8 mEq/L (7-15); Aspartate Amino Transferase* 25 U/L (12-35); Bilirubin Total* 0.5 mg/dL (0.1-1.5); Blood Urea Nitrogen* 21 mg/dL (7-30); Calcium* 9.5 mg/dL (8.4-10.6); Carbon Dioxide* 25 mmol/L (20-32); Glucose* 100 mg/dL (60-115); Total Protein* 6.9 g/dL (6.0-8.3)
[2023-06-19 12:49] LABS: Troponin I* < 0.01 ng/mL (0.01-0.04)
--- NOTE | 2023-06-19 12:51 | CRLHL7_ITS ---
For Patients: As a result of the Century Cures Act, medical imaging exams and procedure reports are released immediately into your electronic medical record. You may view this report before your referring provider. If you have questions, please contact your health care provider. INDICATION: SOB Indication: Shortness of breath. Technique: CT pulmonary angiogram. Coronal/sagittal reconstruction images. 98 cc of Isovue 370 IV. Comparison: CT of the chest, abdomen, and pelvis, 05/26/2023. CT of the chest, abdomen, and pelvis, 12/24/2022. Findings: There is a right IJ Port-A-Cath. The tip of this catheter is in the SVC. There is no evidence for an acute aortic syndrome. No displaced intimal calcification or dissection flap. There are nonenlarged mediastinal lymph nodes. These are stable when compared with 05/26/2023. The main pulmonary artery is normal in caliber. No pulmonary emboli are demonstrated. There is no pleural or pericardial effusion. The lung windows demonstrate no endobronchial mass. There is no bronchiectasis. There is no architectural distortion. There is no peripheral reticulation or honeycombing. No traction bronchiectasis. No suspicious pulmonary nodule or acute airspace disease. There is a 4 millimeter juxtapleural pulmonary nodule adjacent to the right major fissure. This is likely an intrapulmonary lymph node. No change when compared with 05/26/2023. The nodule is also unchanged when compared with 12/24/2022. Evaluation the upper abdomen demonstrates a low-density mass in the spleen. This is stable when compared to 12/24/2022. Small sliding-type hiatal hernia. Cholecystectomy changes. No perihepatic ascites. No adrenal mass. No hydronephrosis. No perinephric fluid collection. No pancreatic glandular atrophy or duct dilation is seen. Celiac artery and SMA are patent. Diverticulosis of the colon. No inflammatory changes. Degenerative disc disease with scoliosis in the thoracic and lumbar spine. There are no suspicious bone lesions identified. Alignment is preserved on sagittal reconstruction images. Manubrium/body of the sternum appear intact. Impression: 1. No pulmonary emboli. 2. No evidence on CT for right heart strain. 3. Stable cystic splenic lesion. 4. No thoracic lymphadenopathy. 5. Stable juxtapleural pulmonary nodule adjacent to the right major fissure. An intrapulmonary lymph node is favored. Dictated by Skip Brooks MD @ 06/19/2023 2:46:47 PM Please note that all CT scans at this facility use dose modulation, iterative reconstruction, and/or weight-based dosing when appropriate to reduce radiation dose to as low as reasonably achievable. Dictated by: Skip Brooks MD @ 06/19/2023 14:47:00 (Electronically Signed)
[2023-06-19 13:07] LABS: Appearance Urine Clear (Clear); Bilirubin Urine Negative (Negative); Blood Urine Negative (Negative); Color Urine Yellow (Yellow); Glucose Urine Negative (Negative); Ketones Urine Negative (Negative); Leukocyte Esterase Urine Negative (Negative); Nitrite Urine Negative (Negative); Protein Urine Negative (Negative); Specific Gravity Urine 1.015 (1.000-1.030); Urobilinogen Urine 0.2 (0.2-1.0); pH Urine 8.5 (5.0-8.5)
[2023-06-19 13:21] LABS: PCR FLU A Negative PCR FLU A (Negative); PCR FLU B Negative PCR FLU B (Negative)
[2023-06-19 13:28] LABS: SARS PCR* Negative SARS-CoV-2 (Negative)
[2023-06-19 13:39] LABS: RBC Urine 0-2 (0-2); Squamous Epithelial Cell Urine Few (None-Few); WBC Urine 0-2 (0-5)
[2023-06-19 14:12] VITALS: PULSE 73; O2SAT 97
[2023-06-19 14:13] VITALS: BP 107/67; PULSE 74; O2SAT 98
[2023-06-19 14:14] VITALS: PULSE 76; O2SAT 98
[2023-06-19 14:30] VITALS: PULSE 71; O2SAT 96
[2023-06-19 14:31] VITALS: BP 103/83; PULSE 77; O2SAT 97
[2023-06-19] MEDS: HEPARIN 500 UNIT/5 ML SYRINGE IVF (15:07)
== END 2023-06-19 15:07 | disposition home or self-care (01) ==
PROVIDERS: Emergency Provider Student in an Organized Health Care Education/Training Program; PCP Physician Assistant Medical
DX: R42 Dizziness and giddiness (principal)
CPT/HCPCS: 36415; 70450; 71046; 71275; 80053; 81001; 84484; 85025; 87631; 93005; 99283; 99284; 99285; J1642; Q9967

== ENCOUNTER 2023-07-13 12:15 | Outpatient (CLI) | payer MEDICARE, BC, SELFPAY ==
--- NOTE | 2023-07-13 13:00 | CRLHL7_ITS ---
For Patients: As a result of the Cures Act, medical imaging exams and procedure reports are released immediately into your electronic medical record. You may view this report before your referring provider. If you have questions, please contact your health care provider. INDICATION: Endometrial cancer. Comparison : CT scan of the chest, abdomen, and pelvis dated 26 May 2023. Technique : Pelvic MRI with T1, T2, and postcontrast images. Intravenous gadolinium administered. Findings : Hysterectomy. No pelvic masses. No adenopathy. Colonic diverticulosis. No other bony or soft tissue abnormalities identified. Impression : 1. Hysterectomy. No pelvic masses or adenopathy. All Dictated by Gavin Tamez MD @ 07/14/2023 10:00:56 AM (Electronically Signed)
== END 2023-07-13 12:16 | disposition home or self-care (01) ==
LOC: MRI 12:16
PROVIDERS: PCP Physician Assistant Medical; Visit Provider Internal Medicine Hematology & Oncology
DX: C54.1 Malignant neoplasm of endometrium (principal)
CPT/HCPCS: 72197; A9575

== ENCOUNTER 2023-07-22 14:02 | Outpatient (CLI) | payer MEDICARE, BC, SELFPAY ==
--- NOTE | 2023-07-22 14:45 | PE_ITS ---
[facility] [address] [facility] [address] Phone:?[phone] Fax:?[phone] Referring Physician Information: Karoline Martinez M.D. [address] [facility] [address] Phone:?[phone] Fax:?[phone] Patient:Shantell Silvestre D.O.B:?1950 Sex:?Female Phone:?[phone] [facility] MRN:?[id number] Exam Date:?07/22/2023 EXAM: PET/CT EYES TO THIGHS, CANCER INITIAL STAGING CLINICAL INFORMATION: History of endometrial cancer, breast cancer. TECHNICAL INFORMATION: Helical acquisition of data was obtained from the orbits to the upper thighs with reconstruction of 3.75 mm thick images at 3.[address] data was used for attenuation correction. PET scanning was performed through the same anatomic range 60 minutes following administration of 11.0 mCi of 18-FDG delivered intravenously. PET, CT and PET/CT fusion images are interpreted using a computer viewing workstation. PET, CT and PET/CT fusion images were archived and saved in the patient's permanent medical record. Note that the examination was performed in the setting of resting hyperglycemia. The patient's glucose at the time of the injection was 139 mg/dL. The standardized uptake values may be artificially diminished and image quality is suboptimal due to increased muscular/visceral glucose uptake. COMPARISON: Pelvic MRI from 07/13/2023, chest CT from 06/19/2023, CT CAP from 05/26/2023. INTERPRETATION: Head and Neck: There are no abnormal hypermetabolic foci within the head or neck. There is physiologic uptake in the intracranial soft tissues. Chest: There are no abnormal hypermetabolic foci within the chest. Background mediastinal blood pool uptake has a maximum SUV of 4.3. No lung nodules or masses detected on this free-breathing exam. No lymphadenopathy detected. Right chest port catheter terminates at the cavoatrial junction. Abdomen and Pelvis: There are no abnormal hypermetabolic foci within the abdomen or pelvis. Background hepatic parenchymal uptake has a maximum SUV of 5.91. There is physiologic excretion of radiotracer in the urine and bowel. Cholecystectomy and hysterectomy noted. 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 No abdominopelvic lymphadenopathy in terms of size, morphology, or metabolic rate. There is colonic diverticulosis without evidence of diverticulitis. Skeleton, Musculature, and Integument: No abnormal hypermetabolic foci within the skeleton. No deo osteoblastic or osteolytic disease. Multifocal intramuscular uptake is thought to be related to muscle strain/movement and resting hyperglycemia. For instance, focal uptake within the left trapezius muscle (Se 2 Im 40) has a maximum SUV of 11.[address] correlate. CONCLUSION: No convincing scintigraphic evidence of hypermetabolic malignancy. Multifocal intramuscular uptake is thought to be related to muscle strain/movement and resting hyperglycemia. Electronically signed on 07/23/2023 2:48:00 PM by Jhonny Olmstead M.D.
== END 2023-07-22 14:03 | disposition home or self-care (01) ==
LOC: RAD 14:04
PROVIDERS: PCP Physician Assistant Medical; Visit Provider Internal Medicine Hematology & Oncology
DX: C54.1 Malignant neoplasm of endometrium (principal)
CPT/HCPCS: 78815; A9552

== ENCOUNTER 2023-08-25 11:18 | Outpatient (CLI) | payer MEDICARE, BC, SELFPAY ==
--- NOTE | 2023-08-25 11:30 | CRLHL7_ITS ---
For Patients: As a result of the Cures Act, medical imaging exams and procedure reports are released immediately into your electronic medical record. You may view this report before your referring provider. If you have questions, please contact your health care provider. BILATERAL SCREENING MAMMOGRAM WITH COMPUTER-AIDED DETECTION AND TOMOSYNTHESIS TECHNIQUE: CC and MLO views were obtained. These mammographic images have been obtained using full-field digital technique. These mammographic images were interpreted with the benefit of computer-aided detection. Breast Tomosynthesis was used in this interpretation. COMPARISON FILM: 07/10/22, 07/08/21, 07/08/20. FINDINGS: There are scattered areas of fibroglandular density IMPRESSION: There is no radiographic evidence for malignancy. ASSESSMENT: BI-RADS Category 2: Benign RECOMMENDATION: Routine screening mammogram in 1 year. A lay language report of this examination will be provided to the patient. Osorio Cancino M.D. Diagnostic Radiologist [email or web address] Transcribed: 4:57 p.praveen magana/Dictated by: Osorio Cancino MD @ 08/26/2023 8:30:00 AM (Electronically Signed)
== END 2023-08-25 11:19 | disposition home or self-care (01) ==
LOC: MAMMO 11:19
PROVIDERS: PCP Physician Assistant Medical; Visit Provider Internal Medicine Hematology & Oncology
DX: Z12.31 Encounter for screening mammogram for malignant neoplasm of breast (principal)
CPT/HCPCS: 77063; 77067

== ENCOUNTER 2023-09-02 13:30 | Outpatient (RCR) | payer MEDICARE, BC, SELFPAY ==
[2023-04-15] VITALS (7 sets, daily range): BP systolic 103–121; BP diastolic 53–76; PULSE 57–80; RESP 14–16; TEMP 36.3; O2SAT 96–97
[2023-04-15 08:24] LABS: Basophils Percent Auto 0.3 % (0.0-3.0); Hematocrit 31.9 % (33.0-51.0); Hemoglobin* 10.7 gm/dL (12.0-16.0); Lymphocytes Percent Auto 15.6 % (20-44); Mean Corpuscular HGB Conc 34 gm/dL (32-36); Mean Corpuscular Hemoglobin 31 pg (26-34); Mean Corpuscular Volume 91 fL (80-100); Monocytes Percent Auto 3.8 % (0.0-11.0); Neutrophils Percent Auto 80.3 % (42.0-72.0); Platelet Count* 264 K/uL (140-440); RDW Coefficient of Variation % 16.7 % (11.5-15.5); Red Blood Count 3.49 m/uL (4.00-5.20); White Blood Count* 3.15 K/uL (4.50-11.00)
[2023-04-15 08:41] LABS: Slide Review Reflex No
[2023-04-15] MEDS: dexAMETHasone 20 MG in 0.9 % SODIUM CHLORIDE 100 ml 100 ML 408 MG IVPB (09:38)
[2023-04-15] MEDS: PALONOSETRON 0.25 MG/5 ML inj IV (09:39)
[2023-04-15] MEDS: SODIUM CHLORIDE 0.9 % (FLUSH) 10 ML SYRINGE IVF ×2 (09:39→16:22)
[2023-04-15] MEDS: 0.9 % SODIUM CHLORIDE 250 ml IV (09:39)
[2023-04-15] MEDS: FAMOTIDINE 20 MG, diphenhydrAMINE 50 MG in 0.9 % SODIUM CHLORIDE 100 ml 100 ML 420 MG IVPB (09:59)
[2023-04-15] MEDS: FOSAPREPITANT 150 MG inj 150 MG in 0.9 % SODIUM CHLORIDE 250 ml 250 ML 510 MG IVPB (10:18)
[2023-04-15] MEDS: diphenhydrAMINE 50 MG/ML inj 25 MG IVP (11:37)
[2023-04-15] MEDS: HYDROCORTISONE SOD SUCCINATE 50 MG/ML inj 40 MG IVP (11:37)
[2023-04-15] MEDS: SODIUM CHLORIDE 0.9% IVPB (15:45)
[2023-04-15] MEDS: TUBING SECONDARY IVPB (15:45)
[2023-04-15] MEDS: CARBOPLATIN IVPB (15:45)
[2023-04-15] MEDS: HEPARIN 500 UNIT/5 ML SYRINGE IVF (16:21)
[2023-04-16] MEDS: TBO-FILGRASTIM 480 MCG/0.8 ML SYRINGE SUBCUT (15:33)
[2023-04-16 15:39] VITALS: BP 107/74; PULSE 80; TEMP 36.8; O2SAT 96
[2023-04-19] MEDS: TBO-FILGRASTIM 480 MCG/0.8 ML SYRINGE SUBCUT (09:32)
[2023-04-19 09:33] VITALS: BP 83/61; PULSE 94; RESP 16; TEMP 36.1; O2SAT 96
--- NOTE | 2023-04-19 09:52 | ONC.NURNOTE ---
Pt here for Granix today. BP 83/61 sitting; 104/64 standing. Pt denie s/s orthostatic; notes she was a little dizzy with standing yesterday but is feeling better today. She denies nausea and feels she can adequately increase her water intake today. Pt returns for Granix shot tomorrow; will reassess s/s dehydration then.
[2023-04-20 09:12] VITALS: BP 130/82; PULSE 101; RESP 18; TEMP 36.1; O2SAT 97
[2023-04-20] MEDS: TBO-FILGRASTIM 480 MCG/0.8 ML SYRINGE SUBCUT (09:23)
[2023-05-06] VITALS: BP 114/77; PULSE 78; RESP 14; TEMP 36.1; O2SAT 99
[2023-05-06 07:53] LABS: Basophils Percent Auto 0.6 % (0.0-3.0); Eosinophils Percent Auto 1.3 % (0.0-7.0); Hematocrit 28.2 % (33.0-51.0); Hemoglobin* 9.1 gm/dL (12.0-16.0); Lymphocytes Percent Auto 42.1 % (20-44); Mean Corpuscular HGB Conc 32 gm/dL (32-36); Mean Corpuscular Hemoglobin 31 pg (26-34); Mean Corpuscular Volume 97 fL (80-100); Monocytes Percent Auto 10.4 % (0.0-11.0); Neutrophils Percent Auto 45.6 % (42.0-72.0); Platelet Count* 104 K/uL (140-440); RDW Coefficient of Variation % 19.7 % (11.5-15.5); Red Blood Count 2.92 m/uL (4.00-5.20); White Blood Count* 3.18 K/uL (4.50-11.00)
[2023-05-06 07:56] LABS: Slide Review Reflex No
[2023-05-06 08:10] LABS: Chloride* 100 mmol/L (96-114)
[2023-05-06 08:11] LABS: Potassium* 3.6 mmol/L (3.6-5.1); Sodium* 141 mmol/L (135-149)
[2023-05-06 08:13] LABS: Alkaline Phosphatase* 82 U/L (40-150); Anion Gap 19 mEq/L (7-15); Aspartate Amino Transferase* 72 U/L (12-35); Bilirubin Total* 0.4 mg/dL (0.1-1.5); Blood Urea Nitrogen* 23 mg/dL (7-30); Carbon Dioxide* 22 mmol/L (20-32); Creatinine* 1.1 mg/dL (0.5-1.5); Estimated Glomerular Filt Rate 54 ml/min
[2023-05-06 08:14] LABS: Alanine Aminotransferase* 21 U/L (4-35); Calcium* 9.7 mg/dL (8.4-10.6); Glucose* 116 mg/dL (60-115)
[2023-05-06] MEDS: PALONOSETRON 0.25 MG/5 ML inj IV (10:11)
[2023-05-06] MEDS: SODIUM CHLORIDE 0.9 % (FLUSH) 10 ML SYRINGE IVF (10:11)
[2023-05-06] MEDS: dexAMETHasone 20 MG in 0.9 % SODIUM CHLORIDE 100 ml 100 ML 408 MG IVPB (10:11)
[2023-05-06] MEDS: FOSAPREPITANT 150 MG inj 150 MG in 0.9 % SODIUM CHLORIDE 250 ml 250 ML 510 MG IVPB (10:34)
[2023-05-06] MEDS: HEPARIN 500 UNIT/5 ML SYRINGE IVF (10:35)
[2023-05-06] MEDS: 0.9 % SODIUM CHLORIDE 250 ml IV (10:35)
[2023-05-06] MEDS: FAMOTIDINE 20 MG, diphenhydrAMINE 50 MG in 0.9 % SODIUM CHLORIDE 100 ml 100 ML 309 MG IVPB (11:07)
[2023-05-06 12:33] VITALS: BP 124/74; PULSE 77; RESP 14; TEMP 36.1; O2SAT 95
[2023-05-06] MEDS: CARBOPLATIN IVPB (16:03)
[2023-05-06] MEDS: TUBING SECONDARY IVPB (16:03)
[2023-05-06] MEDS: SODIUM CHLORIDE 0.9% IVPB (16:03)
--- NOTE | 2023-05-06 16:23 | ONC.NURNOTE ---
Yuri.Taxol very well. no reaction. given 45cc hr x1/4 hr vs. then 90 cc hr x1/4 hr vs. then 136 cc hr 1/4 hr vs. then increased to 188 cchr.
[2023-05-07 15:04] VITALS: BP 87/57; PULSE 73; RESP 16; TEMP 36.7; O2SAT 98
[2023-05-07] MEDS: TBO-FILGRASTIM 480 MCG/0.8 ML SYRINGE SUBCUT (15:05)
[2023-05-10 14:55] VITALS: BP 101/65; PULSE 100; TEMP 36.3; O2SAT 97
[2023-05-10] MEDS: TBO-FILGRASTIM 480 MCG/0.8 ML SYRINGE SUBCUT (14:57)
[2023-05-11 14:15] VITALS: BP 127/83; PULSE 97; TEMP 36.1; O2SAT 98
[2023-05-11] MEDS: TBO-FILGRASTIM 480 MCG/0.8 ML SYRINGE SUBCUT (14:24)
[2023-05-13 13:22] LABS: Hemoglobin* 8.2 gm/dL (12.0-16.0)
[2023-05-13] MEDS: SODIUM CHLORIDE 0.9 % (FLUSH) 10 ML SYRINGE IVF (13:22)
[2023-05-13] MEDS: HEPARIN 500 UNIT/5 ML SYRINGE IVF (13:23)
[2023-05-13 13:42] LABS: Albumin* 3.9 g/dL (3.3-5.0)
[2023-05-13 13:45] LABS: Alanine Aminotransferase* 21 U/L (4-35); Alkaline Phosphatase* 86 U/L (40-150); Aspartate Amino Transferase* 44 U/L (12-35); Bilirubin Total* 0.7 mg/dL (0.1-1.5); Total Protein* 6.7 g/dL (6.0-8.3)
[2023-05-13 14:01] VITALS: BP 117/72; PULSE 95; RESP 95; TEMP 36.9; O2SAT 99
[2023-05-14 11:27] VITALS: BP 122/79; PULSE 96; RESP 20; TEMP 35.9; O2SAT 99
[2023-05-14 12:00] VITALS: BP 122/79; PULSE 96; RESP 20; TEMP 35.9; O2SAT 99
[2023-05-14 12:21] VITALS: BP 101/67; PULSE 88; RESP 16; TEMP 37.1; O2SAT 97
[2023-05-14 13:06] VITALS: BP 96/67; PULSE 91; RESP 16; TEMP 37; O2SAT 99
[2023-05-14 14:06] VITALS: BP 108/58; PULSE 84; RESP 16; TEMP 36.7; O2SAT 99
[2023-05-14 15:24] VITALS: BP 94/68; RESP 16; TEMP 36.3; O2SAT 100
[2023-05-20 10:29] LABS: Hemoglobin* 8.9 gm/dL (12.0-16.0)
[2023-05-20] MEDS: HEPARIN 500 UNIT/5 ML SYRINGE IVF (10:54)
[2023-05-20] MEDS: SODIUM CHLORIDE 0.9 % (FLUSH) 10 ML SYRINGE IVF (10:54)
[2023-05-26 12:00] VITALS: BP 113/74; PULSE 87; RESP 18; TEMP 35.5; O2SAT 97
[2023-05-26] MEDS: HEPARIN 500 UNIT/5 ML SYRINGE IVF (12:39)
--- NOTE | 2023-05-26 12:40 | ONC.NURNOTE ---
states a little SOB and tired . states improved from yesturday. states some bruising. cbc ordered.
[2023-05-26 13:13] LABS: Basophils Percent Auto 0.5 % (0.0-3.0); Eosinophils Percent Auto 0.2 % (0.0-7.0); Hematocrit 26.2 % (33.0-51.0); Hemoglobin* 8.6 gm/dL (12.0-16.0); Immature Granulocytes Pct Auto 0.5 %; Lymphocytes Percent Auto 33.3 % (20-44); Mean Corpuscular HGB Conc 33 gm/dL (32-36); Mean Corpuscular Hemoglobin 32 pg (26-34); Mean Corpuscular Volume 98 fL (80-100); Monocytes Percent Auto 9.5 % (0.0-11.0); RDW Coefficient of Variation % 21.4 % (11.5-15.5); Red Blood Count 2.68 m/uL (4.00-5.20); White Blood Count* 4.02 K/uL (4.50-11.00)
[2023-05-26 13:17] LABS: Albumin* 4.3 g/dL (3.3-5.0); Chloride* 105 mmol/L (96-114); Potassium* 3.5 mmol/L (3.6-5.1); Sodium* 139 mmol/L (135-149)
[2023-05-26 13:20] LABS: Alanine Aminotransferase* 19 U/L (4-35); Alkaline Phosphatase* 97 U/L (40-150); Anion Gap 12 mEq/L (7-15); Aspartate Amino Transferase* 26 U/L (12-35); Bilirubin Total* 0.7 mg/dL (0.1-1.5); Blood Urea Nitrogen* 23 mg/dL (7-30); Carbon Dioxide* 22 mmol/L (20-32); Creatinine* 1.2 mg/dL (0.5-1.5); Estimated Glomerular Filt Rate 48 ml/min; Glucose* 89 mg/dL (60-115); Total Protein* 7.1 g/dL (6.0-8.3)
[2023-05-26 13:21] LABS: Calcium* 9.7 mg/dL (8.4-10.6)
[2023-05-26 13:32] LABS: Platelet Count* 45 K/uL (140-440); Slide Review Reflex No
--- NOTE | 2023-05-27 07:47 | ONC.NURNOTE ---
Late Entry 05/26/23. Notified Crystal Burnett APRN at 1400 on 05/26/23 of lab values: platelets 45, hgb 8.6. Pt denies bleeding. Does c/o SOB with exertion. Orders received to recheck CBC on 05/28/23 with possible blood transfusion if Hgb less than 8.4 or worsening symptoms. Pt scheduled for next chemo and MD follow up on 05/31/23.
[2023-05-28 08:45] VITALS: BP 103/68; PULSE 92; RESP 20; TEMP 36.9; O2SAT 98
[2023-05-28 08:58] LABS: Basophils Percent Auto 0.7 % (0.0-3.0); Eosinophils Percent Auto 0.7 % (0.0-7.0); Hematocrit 25.1 % (33.0-51.0); Hemoglobin* 8.3 gm/dL (12.0-16.0); Lymphocytes Percent Auto 32.8 % (20-44); Mean Corpuscular HGB Conc 33 gm/dL (32-36); Mean Corpuscular Hemoglobin 33 pg (26-34); Mean Corpuscular Volume 98 fL (80-100); Monocytes Percent Auto 10.4 % (0.0-11.0); Neutrophils Percent Auto 55.4 % (42.0-72.0); Platelet Count* 59 K/uL (140-440); Red Blood Count 2.55 m/uL (4.00-5.20); White Blood Count* 2.99 K/uL (4.50-11.00)
[2023-05-28 09:00] LABS: Slide Review Reflex No
[2023-05-28 10:10] VITALS: BP 100/70; RESP 18; TEMP 36.4; O2SAT 95
[2023-05-28 10:33] VITALS: BP 103/64; PULSE 72; RESP 16; TEMP 36.2; O2SAT 98
[2023-05-28 11:18] VITALS: BP 107/62; PULSE 76; RESP 14; TEMP 36.4; O2SAT 97
[2023-05-28 13:09] VITALS: BP 102/66; PULSE 81; RESP 14; TEMP 36.1; O2SAT 97
[2023-05-31 08:11] LABS: Basophils Percent Auto 0.6 % (0.0-3.0); Eosinophils Percent Auto 1.3 % (0.0-7.0); Hematocrit 29.9 % (33.0-51.0); Hemoglobin* 9.8 gm/dL (12.0-16.0); Immature Granulocytes Pct Auto 0.3 %; Lymphocytes Percent Auto 35.6 % (20-44); Mean Corpuscular HGB Conc 33 gm/dL (32-36); Mean Corpuscular Hemoglobin 32 pg (26-34); Mean Corpuscular Volume 98 fL (80-100); Monocytes Percent Auto 10.4 % (0.0-11.0); Neutrophils Percent Auto 51.8 % (42.0-72.0); Platelet Count* 121 K/uL (140-440); RDW Coefficient of Variation % 22.4 % (11.5-15.5); Red Blood Count 3.04 m/uL (4.00-5.20); White Blood Count* 3.09 K/uL (4.50-11.00)
[2023-05-31 08:11] LABS: Albumin* 3.9 g/dL (3.3-5.0); Chloride* 105 mmol/L (96-114); Sodium* 140 mmol/L (135-149)
[2023-05-31 08:12] LABS: Potassium* 3.3 mmol/L (3.6-5.1)
[2023-05-31 08:14] LABS: Alkaline Phosphatase* 72 U/L (40-150); Anion Gap 11 mEq/L (7-15); Aspartate Amino Transferase* 49 U/L (12-35); Bilirubin Total* 0.5 mg/dL (0.1-1.5); Blood Urea Nitrogen* 21 mg/dL (7-30); Carbon Dioxide* 24 mmol/L (20-32); Creatinine* 1.1 mg/dL (0.5-1.5); Estimated Glomerular Filt Rate 54 ml/min; Total Protein* 6.8 g/dL (6.0-8.3)
[2023-05-31 08:15] LABS: Alanine Aminotransferase* 19 U/L (4-35); Calcium* 9.8 mg/dL (8.4-10.6); Glucose* 118 mg/dL (60-115)
[2023-05-31 08:18] LABS: Slide Review Reflex No
[2023-05-31] MEDS: SODIUM CHLORIDE 0.9 % (FLUSH) 10 ML SYRINGE IVF (09:30)
[2023-05-31] MEDS: 0.9 % SODIUM CHLORIDE 250 ml IV (10:00)
[2023-05-31] MEDS: dexAMETHasone 20 MG in 0.9 % SODIUM CHLORIDE 100 ml 100 ML 420 MG IVPB (10:10)
[2023-05-31] MEDS: PALONOSETRON 0.25 MG/5 ML inj IV (10:10)
[2023-05-31] MEDS: FOSAPREPITANT 150 MG inj 150 MG in 0.9 % SODIUM CHLORIDE 250 ml 250 ML 780 MG IVPB (10:28)
[2023-05-31] MEDS: FAMOTIDINE 20 MG, diphenhydrAMINE 50 MG in 0.9 % SODIUM CHLORIDE 100 ml 100 ML 420 MG IVPB (10:54)
[2023-05-31] MEDS: CARBOPLATIN IVPB (14:54)
[2023-05-31] MEDS: TUBING SECONDARY IVPB (14:54)
[2023-05-31] MEDS: SODIUM CHLORIDE 0.9% IVPB (14:54)
[2023-06-01 14:19] VITALS: BP 120/75; PULSE 81; TEMP 36.3; O2SAT 97
[2023-06-01] MEDS: TBO-FILGRASTIM 480 MCG/0.8 ML SYRINGE SUBCUT (14:22)
[2023-06-02 14:30] VITALS: BP 112/78; PULSE 93; RESP 16; TEMP 36.6
[2023-06-02] MEDS: TBO-FILGRASTIM 480 MCG/0.8 ML SYRINGE SUBCUT (14:38)
[2023-06-03 14:48] VITALS: BP 107/72; PULSE 115; RESP 16; TEMP 36.5; O2SAT 95
[2023-06-03] MEDS: TBO-FILGRASTIM 480 MCG/0.8 ML SYRINGE SUBCUT (15:02)
[2023-06-21 08:28] LABS: Basophils Percent Auto 1.5 % (0.0-3.0); Eosinophils Percent Auto 1.5 % (0.0-7.0); Hematocrit 27.9 % (33.0-51.0); Hemoglobin* 9.1 gm/dL (12.0-16.0); Lymphocytes Percent Auto 40.5 % (20-44); Mean Corpuscular HGB Conc 33 gm/dL (32-36); Mean Corpuscular Hemoglobin 34 pg (26-34); Mean Corpuscular Volume 104 fL (80-100); Monocytes Percent Auto 16.3 % (0.0-11.0); Neutrophils Percent Auto 40.2 % (42.0-72.0); Platelet Count* 94 K/uL (140-440); RDW Coefficient of Variation % 20.9 % (11.5-15.5); Red Blood Count 2.68 m/uL (4.00-5.20); White Blood Count* 2.64 K/uL (4.50-11.00)
[2023-06-21 08:30] LABS: Slide Review Reflex No
[2023-06-21] MEDS: HEPARIN 500 UNIT/5 ML SYRINGE IVF (10:09)
[2023-06-21] MEDS: 0.9 % SODIUM CHLORIDE 500 ML 500 ML IVPB (10:09)
[2023-06-21] MEDS: SODIUM CHLORIDE 0.9 % (FLUSH) 10 ML SYRINGE IVF (10:09)
[2023-06-21] MEDS: dexAMETHasone 20 MG in 0.9 % SODIUM CHLORIDE 100 ml 100 ML 408 MG IVPB (10:09)
[2023-06-21] MEDS: PALONOSETRON 0.25 MG/5 ML inj IV (10:09)
[2023-06-21] MEDS: FOSAPREPITANT 150 MG inj 150 MG in 0.9 % SODIUM CHLORIDE 250 ml 250 ML 510 MG IVPB (10:43)
[2023-06-21] MEDS: FAMOTIDINE 20 MG, diphenhydrAMINE 50 MG in 0.9 % SODIUM CHLORIDE 100 ml 100 ML 309 MG IVPB (11:13)
[2023-06-21 12:24] VITALS: BP 116/69; PULSE 67; RESP 16; TEMP 36.1; O2SAT 94
[2023-06-21] MEDS: 0.9 % SODIUM CHLORIDE 250 ml IV (12:45)
[2023-06-21 13:02] VITALS: BP 96/70; PULSE 59; RESP 16; TEMP 36.1; O2SAT 94
[2023-06-21] MEDS: CARBOplatin 300 MG, TUBING SECONDARY 1 EACH in 0.9 % SODIUM CHLORIDE 250 ml 250 ML 560 MG IVPB (15:27)
[2023-06-22 15:41] VITALS: BP 130/80; PULSE 77; RESP 16; TEMP 36.6; O2SAT 96
[2023-06-22] MEDS: TBO-FILGRASTIM 480 MCG/0.8 ML SYRINGE SUBCUT (15:47)
[2023-06-23] MEDS: TBO-FILGRASTIM 480 MCG/0.8 ML SYRINGE SUBCUT (15:01)
[2023-06-23 15:08] VITALS: BP 113/69; PULSE 80; RESP 16; TEMP 36; O2SAT 94
[2023-06-24] MEDS: TBO-FILGRASTIM 480 MCG/0.8 ML SYRINGE SUBCUT (15:31)
[2023-07-22] MEDS: HEPARIN 500 UNIT/5 ML SYRINGE IVF (15:00)
[2023-07-22] MEDS: SODIUM CHLORIDE 0.9 % (FLUSH) 10 ML SYRINGE IVF (15:00)
[2023-09-02] MEDS: SODIUM CHLORIDE 0.9 % (FLUSH) 10 ML SYRINGE IVF (13:49)
[2023-09-02] MEDS: HEPARIN 500 UNIT/5 ML SYRINGE IVF (13:49)
[2023-09-02 14:47] LABS: Potassium* 3.4 mmol/L (3.6-5.1)
== END 2023-10-12 23:59 | disposition home or self-care (01) ==
LOC: CCIC 13:30
PROVIDERS: Physician Assistant; PCP Physician Assistant Medical; Referring Provider Physician Assistant Medical; Visit Provider Internal Medicine Hematology & Oncology
DX: C50.912 Malignant neoplasm of unspecified site of left female breast (principal); Z17.0 Estrogen receptor positive status [ER+]; C54.1 Malignant neoplasm of endometrium; E87.6 Hypokalemia
CPT/HCPCS: 36415; 36430; 36591; 71260; 72197; 74177; 78815; 80053; 80076; 84132; 85018; 85025; 86850; 86900; 86901; 86922; 96361; 96372; 96376; 96413; 96415; 96417; 99211; 99212; 99213; 99214; 99215; G0463; A9552; A9575; J1100; J1200; J1447; J1453; J1642; J1720; J2469; J7050; J7120; J9045; J9267; P9016; Q9967; S0028

== ENCOUNTER 2023-10-18 13:04 | Outpatient (CLI) | payer MEDICARE, BC, SELFPAY ==
--- NOTE | 2023-10-18 14:00 | CT_ITS ---
Patient: ALICIA MUNROE Facility:?[facility] Patient ID:?[id number] Site Patient ID:?[id number]. Site :?1950 Study:?CT-Chest/Abd/Pelvis 112CC ISOVUE 370 AND WATER PREP-10/18/2023 2:17:43 PM Ordering Physician:?DR. GARCIA Final Report: Indication: FOLLOW UP BREAST/ENDOMETRIAL CANCER Technique: CT Chest/Abd/Pelvis 112CC ISOVUE 370 AND WATER PREP Please note that all CT scans at this facility use dose modulation, iterative reconstruction, and/or weight-based dosing when appropriate to reduce radiation dose to as low as reasonably achievable. Comparison: CT PET 07/22/2023, CT 05/26/2023 Findings: In the chest, there is a stable 4 millimeter nodule within the right lower lobe adjacent to the fissure. Stable area of scarring within the right medial lung base. No pleural effusion. No infiltrate. No edema or pneumothorax. No adenopathy. No suspicious thyroid lesion. Degenerative changes. No fracture. In the abdomen, there is no suspicious intrahepatic mass. The gallbladder is absent. Similar appearance of the biliary tree. Unchanged pancreas with fatty infiltration. Stable cystic lesion within the spleen. Adrenal glands are normal. Normal kidneys. No enlarged retroperitoneal lymph nodes. Small paraesophageal hernia again noted. In the pelvis, the bladder is incompletely distended. Chronic sigmoid diverticulosis. No diverticulitis. No bowel obstruction. No free air or free fluid. No pelvic or inguinal adenopathy. No pelvic mass. Mild curvature of the spine with degenerative changes. No vertebral body compression fracture or suspicious osseous lesion. Impression: Stable exam. No evidence of metastatic disease. Please note that all CT scans at this facility use dose modulation, iterative reconstruction, and/or weight-based dosing when appropriate to reduce radiation dose to as low as reasonably achievable. Dictated by Osorio Cancnio MD @ 10/20/2023 9:17:03 AM Signed by:?Osorio Cancino MD @10/20/2023 9:17:03 AM (Electronic Signature)
== END 2023-10-18 13:05 | disposition home or self-care (01) ==
PROVIDERS: PCP Physician Assistant Medical; Visit Provider Internal Medicine Hematology & Oncology
DX: C54.1 Malignant neoplasm of endometrium (principal)
CPT/HCPCS: 36591; 71260; 74177; 80053; 85025; J1642; Q9967

== ENCOUNTER 2023-10-31 12:11 | Emergency (ER) | payer MEDICARE, BC, SELFPAY ==
[2023-10-31 12:24] VITALS: BP 134/61; PULSE 78; RESP 18; TEMP 36.4; O2SAT 94; BMI 38.4
--- NOTE | 2023-10-31 13:19 | US_ITS ---
Patient: ALICIA MUNROE Facility:?[facility] Patient ID:?[id number] Site Patient ID:?[id number]. Site :?1950 Study:?US-Extremity Right LEV-10/31/2023 2:06:07 PM Ordering Physician:CLAUDIA HANLEY Final Report: CLINICAL HISTORY: Right leg pain TECHNIQUE: A compression venous ultrasound exam was performed of the right lower extremity using royal-scale imaging, color Doppler and spectral Doppler analysis. FINDINGS: Sonographic imaging of the right lower extremity demonstrates normal compressibility and color Doppler venous blood flow within the common femoral vein, deep femoral vein, and the proximal greater saphenous vein. Within the thigh, the femoral vein is patent and compressible. At a lower level, the popliteal and posterior tibial veins also show normal compressibility and color Doppler venous blood flow. Limited imaging of the contralateral groin demonstrates a normal spectral waveform and color Doppler venous blood flow within the left common femoral vein. IMPRESSION: Normal venous ultrasound exam. No evidence of deep vein thrombosis within the right lower extremity. Dictated by Frida Tamez MD @ 10/31/2023 2:26:04 PM Signed by:?Frida Tamez MD @10/31/2023 2:26:04 PM (Electronic Signature)
--- NOTE | 2023-10-31 13:20 | ED_ITS ---
HPI - General Adult General Chief complaint: Extremity Pain/Injury, Lower Stated complaint: R leg pain Time Seen by Provider: 10/31/23 12:20 History of Present Illness HPI narrative: This 73-year-old female comes in reporting pain in her right lower extremity. She states that there was no injury event or strenuous activity to trigger this. The pain began about fiber 6 days ago and was intermittent but now has become more constant over the past day. She states that she was lawn a long car ride yesterday for about 6 hours. She also has a history of cancer and is undergoing treatment. She does not report any chest pain or shortness of breath. She arrives here with normal vital signs. Related Data Home Medications Medication Instructions Recorded Confirmed ascorbate calcium (vitamin C) 500 500 mg PO QDAY 03/03/22 10/31/23 mg tablet calcium carbonate (Calcium 600) 600 mg PO BID 03/03/22 10/31/23 cholecalciferol (vitamin D3) 10 10 mcg PO QDAY 03/03/22 10/31/23 mcg (400 unit) tablet hydrochlorothiazide 25 mg tablet 25 mg PO DAILY 03/03/22 10/31/23 magnesium 250 mg tablet 250 mg PO QDAY 03/03/22 10/31/23 melatonin 5 mg capsule 5 mg PO QHS PRN 03/03/22 10/31/23 metoprolol tartrate 75 mg tablet 75 mg PO BID 03/03/22 10/31/23 multivitamin 1 tab PO QAM 03/03/22 10/31/23 loperamide 2 mg tablet (Imodium 2 mg PO Q6H PRN 10/15/22 10/31/23 A-D) psyllium husk (with sugar) 3.4 1 tbsp PO QDAY 10/15/22 10/31/23 gram/12 gram oral powder (Metamucil (with sugar)) acetaminophen 500 mg tablet 1,000 mg PO Q6H PRN 03/18/23 10/31/23 (Tylenol Extra Strength) famotidine 20 mg tablet (Pepcid) 20 mg PO BID PRN 03/18/23 10/31/23 ibuprofen 200 mg tablet (Advil) 400 mg PO Q6H PRN 03/18/23 10/31/23 loratadine 10 mg tablet (Claritin) 10 mg PO QDAY PRN 03/18/23 10/31/23 Vaginal lubricate topical 10/25/23 10/31/23 diphenoxylate-atropine 2.5 1 tab PO Q6-12H PRN 10/25/23 10/31/23 mg-0.025 mg tablet (Lomotil) Previous Rx's Medication Instructions Recorded zolpidem 5 mg tablet (Ambien) 5 mg PO QHS PRN insomnia #30 tabs 03/18/23 potassium chloride 20 mEq 20 meq PO BID #60 tabs 06/22/23 tablet,extended release gabapentin 100 mg capsule 100 mg PO QHS #90 caps 07/28/23 anastrozole 1 mg tablet 1 mg PO DAILY #90 tabs 08/17/23 Allergies Allergy/AdvReac Type Severity Reaction Status Date / Time cat dander Allergy Mild Verified 10/31/23 11:52 Review of Systems Status of ROS: Reports: 10 or more systems reviewed and unremarkable except as noted in History and below Narrative: Constitutional: No fevers, no weight gain or loss. Eyes: No discharge. No vision changes. HENT: No congestion, no sore throat, no ear pain. Cardiovascular: No chest pain, no palpitations. Respiratory: No shortness of breath, no wheezes, no cough. Gastrointestinal: No abdominal pain, no vomiting, no diarrhea. Genitourinary: No dysuria, no hematuria. Musculoskeletal: Normal range of motion. Pain in the lower right leg more in the anterior medial aspect that extends sometimes up toward her knee. No pain in the upper leg. Skin: No rashes, no pruritis. Neurological: No dizziness, weakness, sensory change, speech change. Endo/Heme/Allergies: No bruising or bleeding. No polydipsia. Pysch: no suicidality, no anxiety, no insomnia. All other systems reviewed and are negative. [facility] Medical History Endometrial cancer ?C54.1 - Malignant neoplasm of endometrium (ICD-10) History of radiation therapy ?Z92.3 - Personal history of irradiation (ICD-10) Surgical History S/P lumpectomy, left breast (~07/26/18) ?Z98.890 - Other specified postprocedural states (ICD-10) Social History Smoking Status: Never smoker Do you use any of these nicotine containing products: None Second hand tobacco smoke exposure: No How often do you have a drink containing alcohol: monthly or less How many standard drinks containing alcohol do you have on a typical day: 1 or 2 AUDIT-C Alcohol total score: 1 Non-prescribed substance use: denies use Caffeine: Yes service: No Exam Narrative: Exam Narrative: Constitutional: Well-developed, well-nourished, no acute distress. HEENT: Normocephalic, atraumatic. Neck: Normal range of motion. Nontender. Supple. Heart: Regular. No murmurs. Normal rate. Intact distal pulses. Lungs: Clear to auscultation. No chest discomfort. No wheezes, rhonchi, or rales. Abdomen: Normal bowel sounds. Nontender. No rebound tenderness. Genitalia: Deferred. Back: No midline tenderness. Normal range of motion. Extremities: Normal range of motion. Diffuse tenderness in the right lower extremity more on the anterior medial aspect in the area above her ankle extending up toward her knee. There is no sign of increased swelling or erythema. Skin: Intact. No rash. Warm. No erythema or pallor. Neurologic: No altered sensation. No weakness. Alert and oriented. Psychiatric: No suicidality. No anxiety or depression. No insomnia. Nursing notes and vitals signs are reviewed. Const: Vital Signs, click to edit/add: Vital Signs - 24 hr 10/31/23 12:24 Temperature 97.6 F Pulse Rate [Pulse Oximeter] 78 Respiratory Rate 18 Blood Pressure [Ri ght Forearm] 134/61 Pulse Oximetry 94 Oxygen Delivery Me thod Room Air Course Vital Signs Vital signs: Initial Vital Signs Temperature 97.6 F 10/31/23 12:24 Temperature Source Temporal Artery Scan 10/31/23 12:24 Pulse Rate 78 10/31/23 12:24 Pulse Rhythm Regular 10/31/23 12:24 Respiratory Rate 18 10/31/23 12:24 Blood Pressure 134/61 10/31/23 12:24 Blood Pressure Mean 85 10/31/23 12:24 Blood Pressure Position Supine 10/31/23 12:24 Pulse Oximetry 94 10/31/23 12:24 Oxygen Delivery Method Room Air 10/31/23 12:24 Vital Signs Temperature 97.6 F 10/31/23 12:24 Pulse Rate 78 10/31/23 12:24 Respiratory Rate 18 10/31/23 12:24 Blood Pressure 134/61 10/31/23 12:24 Pulse Oximetry 94 10/31/23 12:24 Oxygen Delivery Method Room Air 10/31/23 12:24 Temperature 97.6 F 10/31/23 12:24 Pulse Rate 78 10/31/23 12:24 Respiratory Rate 18 10/31/23 12:24 Blood Pressure 134/61 10/31/23 12:24 Pulse Oximetry 94 10/31/23 12:24 Oxygen Delivery Method Room Air 10/31/23 12:24 Medical Decision Making MDM Narrative Medical decision making narrative: This patient comes in with concern of some discomfort in her right lower extremity. She does have some risk factors for blood clot but has never had a clot that she knows of in the past. She arrives here with normal vital signs a nd actually her exam is also reassuring. An ultrasound is obtained of the right lower extremity and shows no evidence of thrombus. This was greatly reassuring to the patient. She is okay to be discharged home and encouraged use [id number] medicines as needed and directed. Discharge Plan Discharge Clinical Impression: Acute leg pain Patient Disposition: Home w/ Parent or Adult Condition: Stable Additional Instructions: Continue current plans. Use [id number] medicines as needed and directed. Follow up with MD or return if worsening. Prescriptions: No Action metoprolol tartrate 75 mg tablet 75 mg PO BID hydrochlorothiazide 25 mg tablet 25 mg PO DAILY multivitamin Tablet 1 tab PO QAM calcium carbonate [Calcium 600] 600 mg calcium (1,500 mg) tablet 600 mg PO BID cholecalciferol (vitamin D3) 10 mcg (400 unit) tablet 10 mcg PO QDAY ascorbate calcium (vitamin C) 500 mg tablet 500 mg PO QDAY melatonin 5 mg capsule 5 mg PO QHS PRN magnesium 250 mg tablet 250 mg PO QDAY potassium chloride 20 mEq tablet extended release 20 meq PO BID Qty: 60 3RF diphenoxylate-atropine [Lomotil] 2.5-0.025 mg tablet 1 tab PO Q6-12H PRN Vaginal lubricate topical Metamucil (with sugar) 3.4 gram/12 gram powder 1 tbsp PO QDAY loperamide [Imodium A-D] 2 mg tablet 2 mg PO Q6H PRN acetaminophen [Tylenol Extra Strength] 500 mg tablet 1,000 mg PO Q6H PRN ibuprofen [Advil] 200 mg tablet 400 mg PO Q6H PRN loratadine [Claritin] 10 mg tablet 10 mg PO QDAY PRN Hold Instructions: take only after infusions famotidine [Pepcid] 20 mg tablet 20 mg PO BID PRN zolpidem [Ambien] 5 mg tablet 5 mg PO QHS PRN (Reason: insomnia) Qty: 30 0RF gabapentin 100 mg capsule 100 mg PO QHS Qty: 90 1RF anastrozole 1 mg tablet 1 mg PO DAILY Qty: 90 3RF Hold Instructions: md order Follow Up/Referrals: Meena Antoine PA-C [Primary Care Provider] - Stand Alone Forms: [facility] Info Instructions
== END 2023-10-31 14:10 | disposition home or self-care (01) ==
PROVIDERS: Emergency Provider Emergency Medicine Emergency Medical Services; PCP Physician Assistant Medical
DX: M79.604 Pain in right leg (principal)
CPT/HCPCS: 93971; 99284

== ENCOUNTER 2024-03-13 08:44 | Outpatient (CLI) | payer MEDICARE, BC, SELFPAY ==
--- NOTE | 2024-03-13 09:15 | CRLHL7_ITS ---
For Patients: As a result of the Century Cures Act, medical imaging exams and procedure reports are released immediately into your electronic medical record. You may view this report before your referring provider. If you have questions, please contact your health care provider. INDICATION: Malignant neoplasm of endometrium. Follow up. TECHNIQUE: Multiplanar imaging of the pelvis was performed without and with 20 cc of Dotarem contrast material IV. COMPARISON: Pelvic MRI of 12/20/2023 and today`s chest/abdomen/pelvis CT FINDINGS: Postop changes of total abdominal hysterectomy are again demonstrated. No mass or lymphadenopathy is demonstrated. A small amount of free intraperitoneal fluid is noted An unchanged left inguinal fluid collection is demonstrated. Sigmoid diverticulosis is again demonstrated. The bowel is otherwise unremarkable. No lymphadenopathy or other abnormality is demonstrated. IMPRESSION: 1. Post total abdominal hysterectomy. No evidence of recurrent/metastatic disease. 2. Unchanged left inguinal fluid collection Dictated by Julio Escobar MD @ 03/15/2024 5:31:52 AM (Electronically Signed)
--- NOTE | 2024-03-13 10:00 | CRLHL7_ITS ---
For Patients: As a result of the Century Cures Act, medical imaging exams and procedure reports are released immediately into your electronic medical record. You may view this report before your referring provider. If you have questions, please contact your health care provider. INDICATION: Follow-up for endometrial and breast cancer. TECHNIQUE: CT chest, abdomen and pelvis acquired with 110 cc Isovue 370 IV contrast. COMPARISON: 12/20/2023. FINDINGS: CHEST Lungs and pleura: Unchanged small 4 millimeter right lower lobe juxta fissural nodule. No suspicious pulmonary nodule. No effusions, thickening, or pneumothorax. Heart and vasculature: Heart size is normal. Thoracic aorta and pulmonary artery are normal in caliber. Lymph node/mediastinum: No mediastinal, hilar, or axillary adenopathy. Chest wall: Right chest wall port with catheter extending to the lower SVC. Bones: Mild thoracic spondylosis. No suspicious osseous lesion ABDOMEN AND PELVIS: Liver: No suspicious hepatic lesion. Gallbladder and bile ducts: Status post cholecystectomy. Moderate intrahepatic and extrahepatic biliary ductal dilatation. Pancreas: Unremarkable. Spleen: Unchanged splenic cyst. Adrenal glands: Unremarkable. No masses. Kidneys: Normal in caliber. No suspicious masses. GI tract: No bowel obstruction or focal inflammation. Colonic diverticulosis without evidence of acute diverticulitis. Vasculature: Unremarkable. Mesenteric arteries are patent. Lymph nodes: No lymphadenopathy. Omentum/peritoneum/retroperitoneum/abdominal wall: Unchanged fluid within the left inguinal hernia sac. No bowel containing hernia. No suspicious peritoneal or abdominal wall mass Pelvic organs: Status post hysterectomy. No suspicious pelvic mass. Bones: Lumbar spondylosis. No suspicious osseous lesion. IMPRESSION: 1. No evidence of metastatic disease in the chest, abdomen or pelvis. 2. Unchanged fluid within a small left inguinal hernia. 3. Status post cholecystectomy. Moderate intrahepatic and extrahepatic biliary ductal dilatation. Although this may be related to patient age and post cholecystectomy state, the degree of dilatation has increased compared to prior. Recommend correlation with laboratory values and if there is suspicion for obstruction, recommend further assessment with MRCP. Please note that all CT scans at this facility use dose modulation, iterative reconstruction, and/or weight-based dosing when appropriate to reduce radiation dose to as low as reasonably achievable. Dictated by Reji Newby MD @ 03/14/2024 10:13:40 AM (Electronically Signed)
== END 2024-03-13 08:45 | disposition home or self-care (01) ==
LOC: MRI 08:45
PROVIDERS: PCP Physician Assistant Medical; Visit Provider Internal Medicine Hematology & Oncology
DX: C54.1 Malignant neoplasm of endometrium (principal); C50.912 Malignant neoplasm of unspecified site of left female breast
CPT/HCPCS: 36591; 71260; 72197; 74177; 80053; 85025; 86304; A9575; J1642; Q9967

== ENCOUNTER 2024-03-22 14:00 | Outpatient (RCR) | payer MEDICARE, BC, SELFPAY ==
[2023-10-18] MEDS: HEPARIN 500 UNIT/5 ML SYRINGE IVF (13:23)
[2023-10-18] MEDS: SODIUM CHLORIDE 0.9 % (FLUSH) 10 ML SYRINGE IVF (13:23)
[2023-10-18 13:39] LABS: Basophils Absolute Auto 0.03 K/uL (0.00-0.30); Basophils Percent Auto 0.6 % (0.0-3.0); Eosinophils Absolute Auto 0.22 K/uL (0.00-0.50); Eosinophils Percent Auto 4.3 % (0.0-7.0); Hematocrit 33.2 % (33.0-51.0); Hemoglobin* 10.7 gm/dL (12.0-16.0); Immature Granulocytes Abs Auto 0.01 K/uL (0.00-0.30); Immature Granulocytes Pct Auto 0.2 %; Lymphocytes Percent Auto 16.8 % (20-44); Mean Corpuscular HGB Conc 32 gm/dL (32-36); Mean Corpuscular Hemoglobin 33 pg (26-34); Mean Corpuscular Volume 101 fL (80-100); Monocytes Percent Auto 12.8 % (0.0-11.0); Neutrophils Percent Auto 65.3 % (42.0-72.0); Platelet Count* 142 K/uL (140-440); RDW Coefficient of Variation % 13.3 % (11.5-15.5); Red Blood Count 3.29 m/uL (4.00-5.20); White Blood Count* 5.06 K/uL (4.50-11.00)
[2023-10-18 13:41] LABS: Slide Review Reflex No
[2023-10-18 13:52] LABS: Albumin* 4.2 g/dL (3.3-5.0); Chloride* 104 mmol/L (96-114); Potassium* 3.8 mmol/L (3.6-5.1); Sodium* 138 mmol/L (135-149)
[2023-10-18 13:54] LABS: Bilirubin Total* 0.6 mg/dL (0.1-1.5); Creatinine* 1.2 mg/dL (0.5-1.5); Estimated Glomerular Filt Rate 48 ml/min
[2023-10-18 13:55] LABS: Alanine Aminotransferase* 30 U/L (4-35); Alkaline Phosphatase* 99 U/L (40-150); Anion Gap 10 mEq/L (7-15); Aspartate Amino Transferase* 34 U/L (12-35); Blood Urea Nitrogen* 27 mg/dL (7-30); Calcium* 10.3 mg/dL (8.4-10.6); Carbon Dioxide* 24 mmol/L (20-32); Glucose* 101 mg/dL (60-115); Total Protein* 7.3 g/dL (6.0-8.3)
[2023-10-20 22:33] LABS: Cancer Antigen 125 11 U/mL (<=38)
[2023-11-23] MEDS: HEPARIN 500 UNIT/5 ML SYRINGE IVF (12:55)
[2023-11-23] MEDS: SODIUM CHLORIDE 0.9 % (FLUSH) 10 ML SYRINGE IVF (12:55)
[2023-12-20 12:16] LABS: Basophils Absolute Auto 0.04 K/uL (0.00-0.30); Basophils Percent Auto 0.9 % (0.0-3.0); Eosinophils Absolute Auto 0.17 K/uL (0.00-0.50); Eosinophils Percent Auto 3.7 % (0.0-7.0); Hematocrit 30.1 % (33.0-51.0); Hemoglobin* 9.6 gm/dL (12.0-16.0); Lymphocytes Percent Auto 16.6 % (20-44); Mean Corpuscular HGB Conc 32 gm/dL (32-36); Mean Corpuscular Hemoglobin 33 pg (26-34); Mean Corpuscular Volume 103 fL (80-100); Monocytes Percent Auto 9.2 % (0.0-11.0); Neutrophils Percent Auto 69.6 % (42.0-72.0); Platelet Count* 116 K/uL (140-440); Red Blood Count 2.92 m/uL (4.00-5.20); White Blood Count* 4.59 K/uL (4.50-11.00)
[2023-12-20 12:17] LABS: Slide Review Reflex No
[2023-12-20 13:02] LABS: Chloride* 107 mmol/L (96-114); Sodium* 139 mmol/L (135-149)
[2023-12-20 13:03] LABS: Potassium* 3.9 mmol/L (3.6-5.1)
[2023-12-20 13:05] LABS: Alanine Aminotransferase* 16 U/L (4-35); Alkaline Phosphatase* 73 U/L (40-150); Anion Gap 4 mEq/L (7-15); Aspartate Amino Transferase* 21 U/L (12-35); Bilirubin Total* 0.6 mg/dL (0.1-1.5); Blood Urea Nitrogen* 32 mg/dL (7-30); Carbon Dioxide* 28 mmol/L (20-32); Creatinine* 1.2 mg/dL (0.5-1.5); Estimated Glomerular Filt Rate 48 ml/min; Glucose* 79 mg/dL (60-115); Total Protein* 6.8 g/dL (6.0-8.3)
[2023-12-20 13:06] LABS: Calcium* 9.5 mg/dL (8.4-10.6)
[2023-12-20] MEDS: SODIUM CHLORIDE 0.9 % (FLUSH) 10 ML SYRINGE IVF (14:21)
[2023-12-20] MEDS: HEPARIN 500 UNIT/5 ML SYRINGE IVF (14:21)
[2023-12-21 16:02] LABS: Cancer Antigen 125 14 U/mL (<=38)
--- NOTE | 2024-01-03 16:17 | ONC.NURNOTE ---
Patient called to state when moved up from 100mg to 300mg Gabapentin she got diarrhea. Would go up tp 3 loose stools then she would take an Imodium. She went off of it over the weekend completely and the loose stools cleared up. She stated she didn't really notice difference in regards to neuropathy but she is going to try 200mg and see how that works. Patient to update [facility] in a few days
[2024-01-18] MEDS: HEPARIN 500 UNIT/5 ML SYRINGE IVF (13:03)
[2024-01-18] MEDS: SODIUM CHLORIDE 0.9 % (FLUSH) 10 ML SYRINGE IVF (13:03)
[2024-02-22] MEDS: SODIUM CHLORIDE 0.9 % (FLUSH) 10 ML SYRINGE IVF (14:03)
[2024-02-22] MEDS: HEPARIN 500 UNIT/5 ML SYRINGE IVF (14:03)
[2024-03-13] MEDS: SODIUM CHLORIDE 0.9 % (FLUSH) 10 ML SYRINGE IVF ×2 (09:01→10:32)
[2024-03-13] MEDS: HEPARIN 500 UNIT/5 ML SYRINGE IVF ×2 (09:01→10:32)
[2024-03-13 09:12] LABS: Basophils Percent Auto 0.8 % (0.0-3.0); Eosinophils Percent Auto 5.3 % (0.0-7.0); Hematocrit 33.5 % (33.0-51.0); Hemoglobin* 10.5 gm/dL (12.0-16.0); Immature Granulocytes Pct Auto 0.3 %; Lymphocytes Percent Auto 21.9 % (20-44); Mean Corpuscular HGB Conc 31 gm/dL (32-36); Mean Corpuscular Hemoglobin 32 pg (26-34); Mean Corpuscular Volume 101 fL (80-100); Monocytes Percent Auto 9.1 % (0.0-11.0); Neutrophils Percent Auto 62.6 % (42.0-72.0); Platelet Count* 138 K/uL (140-440); RDW Coefficient of Variation % 13.7 % (11.5-15.5); Red Blood Count 3.32 m/uL (4.00-5.20); White Blood Count* 3.97 K/uL (4.50-11.00)
[2024-03-13 09:15] LABS: Slide Review Reflex No
[2024-03-13 09:24] LABS: Chloride* 105 mmol/L (96-114); Potassium* 3.7 mmol/L (3.6-5.1); Sodium* 140 mmol/L (135-149)
[2024-03-13 09:26] LABS: Anion Gap 6 mEq/L (7-15); Bilirubin Total* 0.5 mg/dL (0.1-1.5); Carbon Dioxide* 29 mmol/L (20-32); Creatinine* 1.2 mg/dL (0.5-1.5); Estimated Glomerular Filt Rate 48 ml/min
[2024-03-13 09:27] LABS: Alanine Aminotransferase* 15 U/L (4-35); Alkaline Phosphatase* 80 U/L (40-150); Aspartate Amino Transferase* 26 U/L (12-35); Blood Urea Nitrogen* 27 mg/dL (7-30); Calcium* 9.9 mg/dL (8.4-10.6); Glucose* 88 mg/dL (60-115); Total Protein* 6.5 g/dL (6.0-8.3)
[2024-03-14 22:39] LABS: Cancer Antigen 125 17 U/mL (<=38)
== END 2024-04-15 23:59 | disposition home or self-care (01) ==
LOC: CCIC 14:00
PROVIDERS: PCP Physician Assistant Medical; Referring Provider Physician Assistant Medical; Visit Provider Internal Medicine Hematology & Oncology
DX: C50.912 Malignant neoplasm of unspecified site of left female breast (principal); Z17.0 Estrogen receptor positive status [ER+]; C54.1 Malignant neoplasm of endometrium; E87.6 Hypokalemia; Z79.811 Long term (current) use of aromatase inhibitors; M85.80 Other specified disorders of bone density and structure, unspecified site; G62.9 Polyneuropathy, unspecified; R23.2 Flushing; M25.471 Effusion, right ankle
CPT/HCPCS: 36415; 36591; 71260; 72197; 74177; 80053; 85025; 86304; 99211; 99214; 99215; G0463; A9575; J1642; Q9967

== ENCOUNTER 2024-06-12 08:22 | Outpatient (CLI) | payer MEDICARE, BC, SELFPAY ==
--- NOTE | 2024-06-12 09:15 | CRLHL7_ITS ---
For Patients: As a result of the Cures Act, medical imaging exams and procedure reports are released immediately into your electronic medical record. You may view this report before your referring provider. If you have questions, please contact your health care provider. INDICATION: Endometrial cancer. COMPARISON: Pelvic MRIs dated 13 March 2024 and 20 December 2023. TECHNIQUE: Pelvic MRI with T1, T2, and postcontrast images. Intravenous gadolinium administered. FINDINGS: Hysterectomy. No pelvic masses or adenopathy. Colonic diverticulosis. Left inguinal fluid collection is unchanged. No other bony or soft tissue abnormalities identified. Impression : 1. No pelvic masses or adenopathy. 2. Left inguinal fluid collection is unchanged. Dictated by Gavin Tamez MD @ 06/13/2024 1:16:59 PM (Electronically Signed)
--- NOTE | 2024-06-12 10:00 | CRLHL7_ITS ---
For Patients: As a result of the Century Cures Act, medical imaging exams and procedure reports are released immediately into your electronic medical record. You may view this report before your referring provider. If you have questions, please contact your health care provider. Indication: FOLLOW UP FOR ENDOMETRIAL CANCER Technique: CT Chest/Abd/Pelvis 116CC ISOVUE 370 Please note that all CT scans at this facility use dose modulation, iterative reconstruction, and/or weight-based dosing when appropriate to reduce radiation dose to as low as reasonably achievable. Comparison: 03/13/2024 Findings: In the chest, stable perifissural nodule on the right measuring 5 millimeters, series 3, image 55. Scarring within the right medial lower lobe again noted. No pleural effusion, pulmonary edema, infiltrate or pneumothorax. Degenerative disc disease. No vertebral body compression fracture. Subcentimeter nodule within the left thyroid lobe again noted. No enlarged lymph nodes within the mediastinum, laurie or axilla. Stable appearance of the left breast tissue. In the abdomen, similar appearance of the intrahepatic and extrahepatic biliary tree. No intrahepatic mass. Gallbladder is absent. Stable cyst within the spleen measures 6.3 cm. Adrenal glands are normal. Similar appearance of the kidneys. Pancreatic atrophy. Similar appearance of the GE junction. No retroperitoneal or mesenteric adenopathy. In the pelvis, postop changes of total hysterectomy. Bladder incompletely distended. Sigmoid diverticulosis. No bowel obstruction, free air or abscess. Normal appendix. Similar collection of fluid within the left inguinal region measuring 3.4 cm. Degenerative changes. No vertebral body compression fracture. Impression: Stable exam. No evidence of metastatic disease. Unchanged incidental 5 millimeter perifissural pulmonary nodule on the right. Stable collection of fluid in the left inguinal canal. Similar appearance of the biliary tree status post cholecystectomy. Unchanged intra splenic cyst. Please note that all CT scans at this facility use dose modulation, iterative reconstruction, and/or weight-based dosing when appropriate to reduce radiation dose to as low as reasonably achievable. Dictated by Osorio Cancino MD @ 06/12/2024 1:26:49 PM (Electronically Signed)
== END 2024-06-12 08:23 | disposition home or self-care (01) ==
LOC: MRI 08:23
PROVIDERS: PCP Physician Assistant Medical; Visit Provider Internal Medicine Hematology & Oncology
DX: C54.1 Malignant neoplasm of endometrium (principal); R91.8 Other nonspecific abnormal finding of lung field; D73.4 Cyst of spleen
CPT/HCPCS: 71260; 72197; 74177; A9575; Q9967

== ENCOUNTER 2024-07-04 13:30 | Outpatient (RCR) | payer MEDICARE, BC, SELFPAY | END 2024-07-31 11:49 | disposition home or self-care (01) | PROVIDERS: PCP Physician Assistant Medical; Visit Provider Physician Assistant Medical | DX: M79.604 Pain in right leg (principal); S80.10XA Contusion of unspecified lower leg, initial encounter; Z51.89 Encounter for other specified aftercare | CPT/HCPCS: 97110; 97112; 97163 ==

== ENCOUNTER 2024-08-28 09:53 | Outpatient (CLI) | payer MEDICARE, BC, SELFPAY | END 2024-08-28 09:54 | disposition home or self-care (01) | LOC: MAMMO 09:53 | PROVIDERS: PCP Physician Assistant Medical; Visit Provider Physician Assistant Medical | DX: Z12.31 Encounter for screening mammogram for malignant neoplasm of breast (principal) | CPT/HCPCS: 77063; 77067 ==

== ENCOUNTER 2024-09-12 12:30 | Outpatient (RCR) | payer MEDICARE, BC, SELFPAY ==
--- NOTE | 2024-06-22 18:11 | OT.OPLE2 ---
OT Outpatient Lymphedema Eval* OT Outpatient Lymphedema Eval* Start: 06/21/24 20:19 Freq: Status: Active Protocol: Document 06/22/24 03:20 AMB (Rec: 06/22/24 16:07 AMB [id number]) E-signed By Jeaneth Thomas, OTR/L, CLT, [employer] OT Outpatient Evaluation Details Type Type Eval Complexity Medium Insurance Information Insurance Information Insurance Information Medicare B Home Program Home Program Home Program Initiated Home Program Specifics Provided training and practice in HEP for seated LE lymphatic stimulating exs. Following demo, pt is able to complete exs with minimal cues . Pt was provided with written instructions for use at home as well. Pt was also inst to lie down f30-60 minutes 2x daily to relieve pressure on her groin to allow improved lymphatic flow. OT OP Lymphedema Evaluation Current Condition/Medical Diagnosis Referring Provider Dr Martinez Medical Diagnoses I89.0 Lymphedema C50.912 Breast Cancer C54.1 Endometrial Cancer Treatment Diagnosis I89.0 Lymphedema RLE Date Of Onset 01/05/23 Other Precautions Pt ambulates with a cane due to neuropathy and being unsteady on her feet. 5'3 222# Medical History Medical History Cancer Treatment/Surgery, Obesity,Abdominal Surgery, Radiation Medical History Comments Pt was diagnosed with uterine cancer in November of 2022, she had a robotic hysterectomy in December of 2022 with SLN biopsy in left groin. Pt underwent chemo from February - June of 2023, and then XRT August 2023 - September 2023 (26 treatments). This patient was originally referred to Physical Therapy by Meena Alba to address RLE pain which she felt was due to a long car ride as she had increased pain and swelling the next day. Pt thought maybe she had a blood clot, this was R/O through US in February of 2024. Pt states she also noticed a quarter sized spot on the inside of her leg, states she did have it looked at and nothing was found. Pt states the doctor told her to take Tylenol and Ibuprofen, which really did not help. Pt has had pain shooting up her leg, sometimes worse than others. Pt states the pain increased as the day goes on, by the end of the day , she also notices swelling in her ankle. Pain and swelling are significantly improved by morning. 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 Pt was seen for PT evaluation with Jaci Isaac DPT on 06/20/24. After reviewing pt's medical hx and assessing pt / sxs, Jaci was suspicious of lymphedema and requested referral from oncologist (Dr Martinez) for lymphedema eval / treatment. Pt was seen by Dr Martinez on 06/20/24, she was referred to commercial insurance underwriter for lymphedema. Oncology hx (copied from oncology chart): Oncology Hx: Konrad Walker is a 68-year-old female patient with past medical history of hypertension and morbid obesity,diagnosed with left breast cancer in July 2018 and underwent left breast lumpectomy and left axillary sentinel lymph node biopsy. Referred to Oncology Clinic for recommendation of adjuvant therapy. To summarize her clinical course, patient had a routine screening mammogram on June 29, 2018, which showed a spiculated mass in the posterior left breast measuring 10 x 8 mm. Subsequently she had diagnostic mammogram and diagnostic ultrasound of left breast followed by ultrasound- guided core biopsy which revealed invasive ductal carcinoma, [place] grade 2, estrogen strongly positive ( 98% staining), progesterone strongly positive (98% staining), and HER2 negative by IHC. There was no evidence of angiolymphatic invasion or background DCIS. Then she was referred to meet Dr. Fraser. After discussion of different surgical approaches, patient elected to undergo breast-conserving surgery. She had left lumpectomy and left axillary sentinel lymph node biopsy on July 26, 2018. 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 One axillary sentinel lymph node biopsy was removed and was negative. Her tumor was staged as stage IA ( [id number]). She is referred to our clinic for recommendation of adjuvant therapy. Her tumor sent out for Oncotype DX testing and Oncotype DX score was 8 , with 9 years recurrence risk of 3% on hormone therapy alone based on TAILORx study. Based on this study no absolute benefit from chemotherapy demonstrated and adjuvant chemotherapy was not recommended. Treatment History ONCOLOGY TREATMENT SUMMARY: 1. Left lumpectomy and left axillary sentinel lymph node biopsy under direction of Dr. Brooks on July 26, 2018 2. Adjuvant chemotherapy not recommended given that her Oncotype DX score was 8. 3. Adjuvant radiation therapy , treated at [facility] under direction of Dr. Sellers. 4. Adjuvant endocrine therapy with Arimidex initiated on 10/20/2018. # Endometrial cancer: T1b N0 M0: Stage I B: Mixed histology, grade 3, lymphovascular invasion present Started having vaginal bleeding and sought medical attention for the same Underwent endometrial biopsy followed by laparoscopic hysterectomy and bilateral salpingo-oophorectomy 12/07/2022 pelvic ultrasound consistent with severely thickened and heterogeneous endometrium measuring up to 4. 1 cm concerning for malignancy 12/09/2022 Endometrial by marker reporting template: HER2 negative: IHC 0 MLH1 cannot be determined, sub clonal loss MSH2 intact nuclear expression MSH6 intact nuclear expression PMS2 cannot be determined sub clonal loss MLH1 promoter methylation present P 53 sub clonal over expression--P 53 expression cannot be determined sub clonal over expression by IHC, TP 53 mutation testing with no mutations detected P16 aberrant overexpression Estrogen receptor positive, patchy variable expression Progesterone receptor positive patchy weak expression 12/23/2022 CA 125 at 10.90 12/24/2022 CT chest abdomen pelvis consistent with marked thickening of endometrium measuring 4.9 into 4.5 into 3. 7 cm. Left upper retroperitoneal varicosities, no adenopathy in chest abdomen or pelvis. Sigmoid diverticulosis. No diverticulitis or bowel obstruction. Incidental 6.4 cm cystic lesion within the spleen. 4.4 mm right-sided pulmonary nodule of doubtful significance. 01/05/2023 status post robotic assisted laparoscopic hysterectomy, bilateral salpingo-oophorectomy and left sentinel lymph node biopsy, omental biopsy repair of vaginal laceration Pathology consistent with 2 lymph nodes negative for malignancy Endometrial carcinoma, histologic classification mixed endometrioid 95% and series 5%, high-grade Molecular classification mismatch repair deficient in majority of the tumor, endometrioid component P 53 abnormal in minority of the tumor serous component Maximum tumor size 7 cm, myometrial invasion present is 85%, lower uterine segment involvement absent, cervical involvement absent, uterine serosal involvement absent, angiolymphatic invasion present margins negative pelvic washing negative. Right and left ovaries and fallopian tube negative for carcinoma. Additional findings adenomyosis, leiomyoma calcified, left ovary with serous cyst adenofibroma fallopian tubes with benign paratubal cysts Omentum mature fibroadipose tissue negative for malignancy 01/06/2023 peritoneum pelvis washing negative for malignancy. 01/21/[address]ai Zamudio: Who recommended adjuvant carbo Taxol for 6 cycles 02/24/23: Cy1 carbo AUC 5; Taxol 175 mg/m2 with Neulasta 03/18/2023 cycle 2 carbo AUC 5, Taxol 175 milligrams/meter sq with Neupogen. Infusion reaction within first 10 minutes. Initially Facial flushing, pain between shoulder blades, mild epigastric pain. Mild rigors and chilling after 10 minutes of stopping infusion. Resolved with stopping infusion. Was able to complete infusion after 40mg IV methylprednisolone and titrating infusion rate q 15 min x3, by 1/3, then 2/3 then full rate of infusion. 05/06/2023 cycle 4 carbo AUC5, taxol 175mg/mg2 with neupogen . premedication with dipenhydramine 50mg IV, dexamethasone 20mg IV, famotidine 20mg IV, titration of taxol. 05/31/2023 cycle 5. Carboplatinum AUC 4 and Taxol 150 milligrams/meter sq with Neupogen 06/21/2023 cycle 6., will further dose reduce Carboplatinum to AUC of 3 and Taxol 100 milligrams/meter sq, due to recent emergency room visit with shortness of breath /dizziness/ANC of 1.1/ neuropathy 08/12/23- 09/20/23 -External beam radiotherapy to endometrium initiated on August 12, 2023; anticipated date of completion is on September 20, 2023 -HDR vaginal brachy therapy boosts, anticipated on September 03, 2023 and September 10, 2023 12/20/2023 CT chest abdomen pelvis: 1. New bilobed left inguinal lesion (versus 2 adjacent lesions), with individual components measuring 3.0 x 1.7 centimeters and 1.5 x 2.2 centimeters. This appears to be within a hernia sac measures water attenuation, favored to reflect fluid contained within the hernia sac. However, new necrotic lymph node can not be excluded. Recommend further characterization with MRI. 2. Otherwise, no evidence of metastatic disease in the chest, abdomen or pelvis. MRI pelvis 1. No pelvic masses or adenopathy. 2. Fluid in a small left inguinal hernia. 03/2024 concluded Arimidex for breast cancer 06/13/[address] abdomen pelvis and MRI pelvis, unremarkable for recurrent or metastatic disease. Surgical History Surgical History 01/05/23 Hysterectomy with SLN biopsy from left groin. 07/26/2018 Left breast lumpectomy with SLN Biopsy Medications Medications acetaminophen (Tylenol Extra Strength) 1,000 mg PO Q6H PRN ascorbate calcium (vitamin C) 500 mg PO QDAY calcium carbonate (Calcium 600 ) 600 mg PO BID cholecalciferol (vitamin D3) 10 mcg PO QDAY diphenoxylate-atropine 2.5-0. 025 mg (Lomotil) 1 tab PO Q6- 12H PRN famotidine (Pepcid) 20 mg PO BID PRN gabapentin 200 mg (2 x 100 mg) PO QHS hydrochlorothiazide 25 mg PO DAILY ibuprofen (Advil) 400 mg PO Q6H PRN loperamide (Imodium A-D) 2 mg PO Q6H PRN loratadine (Claritin) 10 mg PO QDAY PRN magnesium 250 mg PO QDAY melatonin 5 mg PO QHS PRN metoprolol tartrate 75 mg PO QDAY multivitamin 1 tab PO QAM potassium chloride ER 20 mEq PO BID PRN psyllium husk (with sugar) 3.4 gram/12 gram (Metamucil (with sugar)) 1 tbsp PO QDAY [Vaginal lubricate topical] zolpidem (Ambien) 5 mg PO QHS PRN Current Work Status Current Work Status Retired Subjective Subjective Pt states she continues to have pain and swelling in her leg, much worse at the end of the day. Pain in the morning is 1-2/10, by evening pain is 5-8/10. Pt has minimal to no swelling in the morning but by evening her ankle is very swollen, swelling can go from her foot all the way to her knee. Pt describes her pain as aching, sometimes sharp, sometimes dull, and sometimes shooting. Pt states elevating her legs usually helps. 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 Pt was seen by her oncologist yesterday, states Everything was ok, the doctor feels she has lymphedema in my leg, but didn't know what that sore spot would be. Pt feels the swelling has made her leg heavy and she is concerned as she already has neuropathy which makes walking difficult. Pt states, I know the swelling is getting worse as my pant leg is tighter on my right. Living Situation Current Living Situation Home With Spouse Or SO Current Living Situation Comments Pt lives in a mobile home with her and a daughter. Patient Difficulties Difficulties With Any Of The Following Walking Patient Difficulties Comments Pt has difficulty with walking due to CIPN, PT is addressing this. Impairments Impairments Loss of Mobility,Limb Heaviness,Poor Clothing Fit Problem List Problem List Limited Knowledge of Lymphedema Treatment/Condition /Precautions,Limited Knowledge of Skin Care & Infection Precautions,Significant Risk For Infection For Lymphedema Related Complications,Does Not Have a HEP,Does Not Have Appropriate Compression Garments For LT Management, Presents With Increased Fall Risk Secondary To Lymphedema Exercise History Does Patient Exercise Regularly No Exercise Comments Pt states she is trying to be more active and walk more but her balance has not been good with her CIPN (working with PT for this). Pain Pain Yes Pain Comments Pain in small area in the medial aspect of the right lower leg, only hurts with palpation, no discoloration noted, no raised area, feels firm, but not hard. This has been evaluated by her doctor, US r/o blood clot. Compression History Does Patient Currently Wear Compression No During Daytime Does Patient Currently Wear Compression No At Night Current Swelling (Location/Pitting/Texture) Pitting Scale: 0 = No pitting 1+ Tissue returns to normal almost immediately 2+ Tissue returns after 15-30 seconds 3+ Tissue returns after 1-1/2 minutes 4+ Tissue returns after 2-3 minutes N/A Tissue no longer pits due to induration Tissue texture: Soft or indurated Clinical Presentation Area RLE Triggering Event & Start Date of Hysterectomy and XRT to pelvis Swelling/Lymphedema Positive Stemmer's Sign No Capillary Refill Brisk Swelling Comments Pt did have an MRI of her pelvis on 06/12/24. Report stated: 1. No pelvic masses or adenopathy 2. Left inguinal fluid collection is unchanged. Type of Swelling Secondary Staging Staging Stage 1 Circumferential Measurements Lower Extremity Left Lower Extremity Great Toe (in cm) 7.8 MTP (in cm) 23.5 Arch (in cm) 22.8 Calcaneus (in cm) 32.1 Ankle (in cm) 28.0 10 cm above Calcaneus Measurement 37.5 20 cm above Calcaneus Measurement 47.1 30 cm above Calcaneus Measurement 48.4 40 cm above Calcaneus Measurement 58.2 50 cm above Calcaneus Measurement 65.1 60 cm above Calcaneus Measurement 65.8 Total Girth in cm 436.3 Right Lower Extremity Great Toe (in cm) 7.8 MTP (in cm) 23.5 Arch (in cm) 23.0 Calcaneus (in cm) 33.5 Ankle (in cm) 31.8 10 cm above Calcaneus Measurement 43.1 20 cm above Calcaneus Measurement 48.0 30 cm above Calcaneus Measurement 52.3 40 cm above Calcaneus Measurement 65.0 50 cm above Calcaneus Measurement 67.0 60 cm above Calcaneus Measurement 71.1 Total Girth in cm 466.1 Assessment Assessment Pt is a very pleasant 73yo referred to OT to address suspected lymphedema in the RLE. Pt has hx of uterine cancer with LN removed from her left groin, which would not explain the swelling in her right leg, however she has had extensive XRT, pt feels the XRT treated both her right and her left groin which likely damaged her LN in the right groin leading to the onset of RLE swelling. Pt does have and area on the inner, lower leg that is quite tender to palpation, states it started as a quarter size, it has grown to ~ 4x2, this is not likely directly related to the lymphedema but possibly exacerbated as the swelling increased in her leg. This will need to be monitored. Pt has had it checked by MD twice with inconclusive findings, blood clot has been ruled out. Pt presents with stage 2, soft, non-pitting edema from mid lower let through her upper thigh, gr 2 pitting edema in her right ankle, no swelling in the right foot today, but pt states is she had not put her shoe on right away in the morning, her foot would be swollen as well. Pt has significant varicosities in BLE, no hx of vein surgery but she has had BLE TKAs 10-20 years ago. Pt states the swelling improves with elevation and is very minimal in the morning after sleeping in bed all night. Pt will benefit from skilled OT intervention to address RLE swelling, compression needs, HEP, pt education regarding skin care and self-care strategies for lifelong management of her chronic condition. Patient Goals Patient Goals 1. Pt will be independent and compliant with home program for lymphedema management including elevation, HEP, compression and skin care in order to achieve and maintain best outcomes. 4 weeks 3. Pt will obtain appropriate compression for LT management of her lymphedema. 10 weeks. 3. Pt will demonstrate a reduction of at least 15cm from total measurement of the RLE in order to reduce risk for exacerbation of lymphedema , infection and further lymphedema related complications. 8 weeks 4. Pt will be independent and compliant in donning, doffing, and wearing medical grade compression garments for LE. 10 weeks Click To Default Short Term Goals Standard Goals Short Term Goals Goal: Patient and or caregiver will understand lymphedema precautions to decrease risk of infection and further lymphedema related complications Goal: Patient will develop a tolerance for wearing multi-layer, short stretch bandages between treatment sessions to facilitate limb decongestion Goal: Patient will experience decreased pitting edema in order to improve tissue health and decrease risk for infection/cellulitis Goal: Patient will perform HEP with minimal assistance in order to improve lymphatic flow and venous return Goal: Patient will perform self MLD protocol with minimal assistance to help reduce swelling and improve ROM and mobility Treatment Plan Treatment Plan Evaluation,Edema Control, Manual Therapy,Therapeutic Exercise,Therapeutic Activities,Self-Care/Home Management,Education Expected Frequency 1-2x Week Expected Duration 8-10 Weeks Certification Certification Statement I Certify That: Therapy Services Provided, Therapy Plan Established, Therapy Plan Reviewed Certification Information Clinic ID # [id number] Initial Certification Date 06/22/24 Recertification Due Date 09/20/24 Provider Signature Required Yes Provider Signature Shows Agreement With POC & Medical Necessity Physician NPI Number Write NPI# Here Physician Comment/Change Comment or Changes Physician Signature & Date Requested Please Sign/Date Here
== END 2024-09-12 13:30 | disposition home or self-care (01) ==
PROVIDERS: PCP Physician Assistant Medical; Visit Provider Internal Medicine Hematology & Oncology
DX: C50.912 Malignant neoplasm of unspecified site of left female breast (principal); I97.2 Postmastectomy lymphedema syndrome; Z51.89 Encounter for other specified aftercare
CPT/HCPCS: 97110; 97166; 97530; 97535; X5282

== ENCOUNTER 2024-10-02 08:12 | Outpatient (CLI) | payer MEDICARE, BC, SELFPAY ==
--- NOTE | 2024-10-02 09:00 | CRLHL7_ITS ---
For Patients: As a result of the Century Cures Act, medical imaging exams and procedure reports are released immediately into your electronic medical record. You may view this report before your referring provider. If you have questions, please contact your health care provider. Indication: Endometrial cancer follow-up Technique: CT Chest/Abd/Pelvis WITH 100 CC ISOVUE 370 AND WATER Please note that all CT scans at this facility use dose modulation, iterative reconstruction, and/or weight-based dosing when appropriate to reduce radiation dose to as low as reasonably achievable. Comparison: 06/12/2024 Findings: In the chest, a Port-A-Cath is present on the right. Postop changes left breast lumpectomy. No mediastinal, hilar or axillary adenopathy. Similar appearance of the thyroid. No pulmonary embolism or aortic aneurysm. Small paraesophageal hernia is similar. Stable 5 millimeter perifissural nodule on the right. Stable scarring within the right lower lobe. No infiltrate or edema. No effusion or pneumothorax. No fracture. In the abdomen/pelvis, similar appearance of the biliary tree status post cholecystectomy. No intrahepatic mass. Stable intra splenic cyst and smaller hypodensity more inferiorly within the spleen. Similar appearance of the pancreas. Adrenal glands are normal. No hydronephrosis or solid renal mass. Stable varicosities in the left retroperitoneum. No bowel obstruction, free air, free fluid or adenopathy. Chronic sigmoid diverticulosis. No diverticulitis. Normal appendix. Decreased size of fluid collections within the left inguinal canal. No fracture. No destructive osseous lesion. Degenerative changes. Status post hysterectomy. No pelvic mass. Impression: Decreased size of fluid collections within the left inguinal canal. Remainder of the examination is unchanged. Please note that all CT scans at this facility use dose modulation, iterative reconstruction, and/or weight-based dosing when appropriate to reduce radiation dose to as low as reasonably achievable. Dictated by Osorio Cancino MD @ 10/02/2024 10:55:13 AM (Electronically Signed)
--- NOTE | 2024-10-02 10:15 | CRLHL7_ITS ---
For Patients: As a result of the Cures Act, medical imaging exams and procedure reports are released immediately into your electronic medical record. You may view this report before your referring provider. If you have questions, please contact your health care provider. INDICATION: Uterine cancer. COMPARISON: CT scan of the chest, abdomen, and pelvis dated 02 October 2024. Pelvic MRIs dated 12 June 2024 and 13 March 2024. PET-CT scan dated 22 July 2023. Technique : Pelvic MRI with T1, T2, and postcontrast images. Intravenous gadolinium administered. Findings : Hysterectomy. No pelvic masses or adenopathy. Colonic diverticulosis. Small left inguinal fluid collection is decreased in size. New left sacral ala fracture with increased T2 signal and enhancement. No other bony or soft tissue abnormalities identified. Impression : 1. No pelvic masses or adenopathy. 2. New left sacral insufficiency fracture. Dictated by Gavin Tamez MD @ 10/03/2024 5:01:26 AM (Electronically Signed)
== END 2024-10-02 08:13 | disposition home or self-care (01) ==
LOC: CT 08:12
PROVIDERS: PCP Physician Assistant Medical; Visit Provider Internal Medicine Hematology & Oncology
DX: C54.1 Malignant neoplasm of endometrium (principal); C50.912 Malignant neoplasm of unspecified site of left female breast
CPT/HCPCS: 36591; 71260; 72197; 74177; 80053; 85025; 86304; A9575; J1642; Q9967

== ENCOUNTER 2024-10-11 15:00 | Outpatient (RCR) | payer MEDICARE, BC, SELFPAY ==
[2024-04-19] MEDS: HEPARIN 500 UNIT/5 ML SYRINGE IVF (14:00)
[2024-04-19] MEDS: SODIUM CHLORIDE 0.9 % (FLUSH) 10 ML SYRINGE IVF (14:00)
[2024-05-24] MEDS: SODIUM CHLORIDE 0.9 % (FLUSH) 10 ML SYRINGE IVF ×2 (13:25→13:53)
[2024-05-24] MEDS: HEPARIN 500 UNIT/5 ML SYRINGE IVF ×2 (13:25→13:53)
[2024-06-12] MEDS: SODIUM CHLORIDE 0.9 % (FLUSH) 10 ML SYRINGE IVF ×2 (08:40→10:09)
[2024-06-12] MEDS: HEPARIN 500 UNIT/5 ML SYRINGE IVF ×2 (08:40→10:09)
[2024-06-12 08:49] LABS: Basophils Percent Auto 1.2 % (0.0-3.0); Eosinophils Percent Auto 12.5 % (0.0-7.0); Hematocrit 33.5 % (33.0-51.0); Hemoglobin* 10.5 gm/dL (12.0-16.0); Immature Granulocytes Pct Auto 0.2 %; Lymphocytes Percent Auto 23.5 % (20-44); Mean Corpuscular HGB Conc 31 gm/dL (32-36); Mean Corpuscular Hemoglobin 31 pg (26-34); Mean Corpuscular Volume 100 fL (80-100); Monocytes Percent Auto 9.6 % (0.0-11.0); Platelet Count* 125 K/uL (140-440); RDW Coefficient of Variation % 13.6 % (11.5-15.5); Red Blood Count 3.35 m/uL (4.00-5.20); White Blood Count* 4.08 K/uL (4.50-11.00)
[2024-06-12 08:54] LABS: Slide Review Reflex No
[2024-06-12 09:04] LABS: Albumin* 3.7 g/dL (3.3-5.0); Chloride* 111 mmol/L (96-114); Sodium* 142 mmol/L (135-149)
[2024-06-12 09:06] LABS: Estimated Glomerular Filt Rate 60 ml/min
[2024-06-12 09:07] LABS: Alanine Aminotransferase* 12 U/L (4-35); Alkaline Phosphatase* 88 U/L (40-150); Anion Gap 7 mEq/L (7-15); Aspartate Amino Transferase* 18 U/L (12-35); Bilirubin Total* 0.3 mg/dL (0.1-1.5); Blood Urea Nitrogen* 23 mg/dL (7-30); Calcium* 9.6 mg/dL (8.4-10.6); Carbon Dioxide* 24 mmol/L (20-32); Glucose* 92 mg/dL (60-115); Total Protein* 6.2 g/dL (6.0-8.3)
[2024-06-13 23:09] LABS: Cancer Antigen 125 14 U/mL (<=38)
[2024-10-02 08:33] LABS: Basophils Percent Auto 0.8 % (0.0-3.0); Eosinophils Percent Auto 6.1 % (0.0-7.0); Hematocrit 36.9 % (33.0-51.0); Hemoglobin* 11.9 gm/dL (12.0-16.0); Lymphocytes Percent Auto 25.8 % (20-44); Mean Corpuscular HGB Conc 32 gm/dL (32-36); Mean Corpuscular Hemoglobin 31 pg (26-34); Mean Corpuscular Volume 97 fL (80-100); Monocytes Percent Auto 9.3 % (0.0-11.0); Platelet Count* 144 K/uL (140-440); RDW Coefficient of Variation % 13.6 % (11.5-15.5); White Blood Count* 3.96 K/uL (4.50-11.00)
[2024-10-02 08:36] LABS: Slide Review Reflex No
[2024-10-02 08:46] LABS: Albumin* 4.1 g/dL (3.3-5.0); Chloride* 106 mmol/L (96-114)
[2024-10-02 08:47] LABS: Potassium* 4.1 mmol/L (3.6-5.1); Sodium* 139 mmol/L (135-149)
[2024-10-02 08:49] LABS: Alanine Aminotransferase* 18 U/L (4-35); Alkaline Phosphatase* 120 U/L (40-150); Anion Gap 10 mEq/L (7-15); Aspartate Amino Transferase* 22 U/L (12-35); Bilirubin Total* 0.5 mg/dL (0.1-1.5); Blood Urea Nitrogen* 26 mg/dL (7-30); Carbon Dioxide* 23 mmol/L (20-32); Creatinine* 1.2 mg/dL (0.5-1.5); Est. Creatinine Clearance* 33.02; Estimated Glomerular Filt Rate 48 ml/min; Glucose* 86 mg/dL (60-115)
[2024-10-02 08:50] LABS: Calcium* 9.6 mg/dL (8.4-10.6)
[2024-10-02] MEDS: HEPARIN 500 UNIT/5 ML SYRINGE IVF (10:49)
[2024-10-02] MEDS: SODIUM CHLORIDE 0.9 % (FLUSH) 10 ML SYRINGE IVF (10:50)
[2024-10-04 11:59] LABS: Cancer Antigen 125 11 U/mL (<=38)
== END 2024-10-16 23:59 | disposition home or self-care (01) ==
LOC: CCIC 15:00
PROVIDERS: PCP Physician Assistant Medical; Referring Provider Physician Assistant Medical; Visit Provider Internal Medicine Hematology & Oncology
DX: C50.912 Malignant neoplasm of unspecified site of left female breast (principal); Z17.0 Estrogen receptor positive status [ER+]; C54.1 Malignant neoplasm of endometrium; E87.6 Hypokalemia; Z79.811 Long term (current) use of aromatase inhibitors; M85.80 Other specified disorders of bone density and structure, unspecified site; R23.2 Flushing; G62.9 Polyneuropathy, unspecified; I89.0 Lymphedema, not elsewhere classified
CPT/HCPCS: 36415; 36591; 71260; 72197; 74177; 80053; 85025; 86304; 99211; 99215; G0463; A9575; J1642; Q9967

== ENCOUNTER 2024-11-24 09:45 | Outpatient (CLI) | payer MEDICARE, BC, SELFPAY ==
--- NOTE | 2024-11-24 10:00 | CRLHL7_ITS ---
For Patients: As a result of the Century Cures Act, medical imaging exams and procedure reports are released immediately into your electronic medical record. You may view this report before your referring provider. If you have questions, please contact your health care provider. Indication: Metastatic disease Technique: Two views right tibia and fibula Comparison: CT-PET 11/20/2024 Findings: Destructive changes about the anteromedial distal tibia noted with periostitis. No pathologic fracture. Scalloping of the cortex noted. Fibula intact. Impression: Soft tissue mass adjacent to the distal tibial cortex with resultant scalloping and periostitis. Some intrinsic marrow changes are present without pathologic fracture. Dictated by Osorio Cancino MD @ 11/24/2024 2:43:03 PM (Electronically Signed)
== END 2024-11-24 09:46 | disposition home or self-care (01) ==
LOC: RAD 09:48
PROVIDERS: PCP Physician Assistant Medical; Visit Provider Internal Medicine Hematology & Oncology
DX: C50.912 Malignant neoplasm of unspecified site of left female breast (principal); M86.8X6 Other osteomyelitis, lower leg; C54.1 Malignant neoplasm of endometrium
CPT/HCPCS: 73590

== ENCOUNTER 2025-01-01 08:05 | Outpatient (CLI) | payer MEDICARE, BC, SELFPAY ==
--- NOTE | 2025-01-01 09:00 | CRLHL7_ITS ---
For Patients: As a result of the Century Cures Act, medical imaging exams and procedure reports are released immediately into your electronic medical record. You may view this report before your referring provider. If you have questions, please contact your health care provider. Indication: FOLLOW UP LT BREAST AND ENDOMETRIAL CANCER Technique: CT Chest/Abd/Pelvis W/100CC [id number] Please note that all CT scans at this facility use dose modulation, iterative reconstruction, and/or weight-based dosing when appropriate to reduce radiation dose to as low as reasonably achievable. Comparison: 10/02/2024 Findings: In the chest, a right-sided Port-A-Cath is present. Postop changes left lumpectomy. No mediastinal, hilar or axillary adenopathy. Visualized thyroid is unremarkable. No pleural or pericardial effusion. Hiatal hernia is again noted which measures 2.4 cm. No intrinsic osseous lesion or fracture. Minimal scarring within the right lower lobe at the medial aspect. Stable 3 millimeter nodule adjacent to the right-sided fissure, . In the abdomen, stable appearance of the liver without suspicious intrahepatic mass. Unchanged biliary tree with intrahepatic and extrahepatic distention. Pancreatic atrophy. Stable splenic cyst. No adrenal nodule. No hydronephrosis. No gastric outlet obstruction. Stable left retroperitoneal varices. No retroperitoneal or mesenteric adenopathy. No bowel obstruction. In the pelvis, similar oblong collection of fluid in the left inguinal canal. No bowel obstruction or free air. No abscess. Bladder normal. No pelvic mass. Uterus absent. Sclerotic density within the left sacrum in a linear distribution. Subtle lucency within the right sacrum. Curvature of the spine with degenerative disc disease. Sigmoid diverticulosis. Impression: No evidence of metastatic disease. Bilateral nondisplaced sacral insufficiency fractures. No suspicious osseous lesion. Please note that all CT scans at this facility use dose modulation, iterative reconstruction, and/or weight-based dosing when appropriate to reduce radiation dose to as low as reasonably achievable. Dictated by Osorio Cancino MD @ 01/01/2025 11:22:09 AM (Electronically Signed)
--- NOTE | 2025-01-01 09:15 | CRLHL7_ITS ---
For Patients: As a result of the Cures Act, medical imaging exams and procedure reports are released immediately into your electronic medical record. You may view this report before your referring provider. If you have questions, please contact your health care provider. INDICATION: History of endometrial cancer. Hysterectomy. COMPARISON: Pelvic MRIs dated 02 October 2024 and 12 June 2024. TECHNIQUE: Pelvic MRI with T1, T2, and postcontrast images. Intravenous gadolinium administered. Findings : Hysterectomy. No pelvic masses or adenopathy. Colonic diverticulosis. Small left inguinal fluid collection is not significantly changed. Left sacral insufficiency fracture is unchanged. New right sacral insufficiency fracture. No other bony or soft tissue abnormalities identified. Impression : 1. No pelvic masses or adenopathy identified. 2. Left sacral insufficiency fracture is unchanged. 3. New right sacral insufficiency fracture. Dictated by Gavin Tamez MD @ 01/01/2025 3:03:39 PM (Electronically Signed)
== END 2025-01-01 08:06 | disposition home or self-care (01) ==
LOC: CT 08:06
PROVIDERS: PCP Physician Assistant Medical; Visit Provider Internal Medicine Hematology & Oncology
DX: C54.1 Malignant neoplasm of endometrium (principal); C50.912 Malignant neoplasm of unspecified site of left female breast; S32.10XA Unspecified fracture of sacrum, initial encounter for closed fracture
CPT/HCPCS: 71260; 72197; 74177; A9575; Q9967

== ENCOUNTER 2025-03-07 13:05 | Outpatient (CLI) | payer MEDICARE, BC, SELFPAY ==
--- NOTE | 2025-03-07 13:30 | CRLHL7_ITS ---
For Patients: As a result of the Century Cures Act, medical imaging exams and procedure reports are released immediately into your electronic medical record. You may view this report before your referring provider. If you have questions, please contact your health care provider. XR DXA Bone Mineral Density (BMD) Current height (in): 62.5. Weight (lb): 222.0. Menopause age: 56. Ethnicity: White. 1. Have you had a previous hip or vertebral fracture? No. 2. Have you had any fractures during your adult life which did not result from significant trauma (e.g., auto accident)? No. 3. Did either of your parents have a hip fracture? No. 4. Do you smoke? No. 5. Have you ever taken Glucocorticoids? No. 6. Do you have rheumatoid arthritis? No. 7. Do you have secondary osteoporosis? No. 8. Do you drink 3 or more alcoholic drinks per day? No. 9. Are you being treated for osteoporosis? No. 10. Have you ever taken any of the following medications: Actonel, Evista, Fosamax, Miacalcin, Reclast, Boniva, Forteo, HRT (i.e. estrogen/hormone therapy), Protelos, Prolia, Vitamin D, Calcium, other ??? please specify. ANSWER: Yes, Vitamin D, Calcium. 11. Do you have any of the following medical conditions: Anorexia or bulimia, asthma or emphysema, end stage renal disease, hyperparathyroidism, any seizure disorders, cancer, inflammatory bowel diseases, hysterectomy, other ??? please specify. ANSWER: Yes, Cancer, Hysterectomy. 12. What was your maximum height (inches)? 65. 13. Do you perform weight bearing exercise regularly? Yes. 14. Do you regularly consume dairy products? Yes. 15. Do you drink caffeinated beverages? Yes. If female: 16. At what age did your period start? 13. 17. Are you premenopausal? No. 18. How many full term pregnancies have you had? 3. 19. Have you ever missed your period for more than 6 months in a row (not including or menopause)? No. TECHNIQUE: Bone mineral density study was performed using the [employer]. FINDINGS: The results of the study expressed as bone mineral density (BMD) are as follows: Lumbar spine L1, L3, L4: BMD:0.946 g/cm2. T-score: -1.0. Z-score: 1.4. Neck Left: BMD: 0.678 g/cm2. T-score: -1.5 . Z-score: 0.5. Right: BMD: 0.731 g/cm2. T-score: -1.1 . Z-score: 0.9. Total Left: BMD: 0.743 g/cm2. T-score: -1.6 . Z-score: 0.1. Right: BMD: 0.781 g/cm2. T-score: -1.3 . Z-score: 0.4. IMPRESSION: Osteopenia. *Comparison exams done prior to 12/2019 were performed on different unit, [employer]. COMPARISON: Compared with scan of 02/10/2023, the bone mineral density has decreased by 0.8 percent at the spine and decreased by 5.9 percent at the hip. Compared with scan of 10/10/2020, the bone mineral density has decreased by 1.2 percent at the spine and decreased by 5.6 percent at the hip. JAYASHREE TAMEZ M.D. Transcribed: 10:17 a.m. [email or web address] JR/Dictated by: Jayashree Tamez MD @ 03/12/2025 6:21:00 AM (Electronically Signed)
== END 2025-03-07 13:06 | disposition home or self-care (01) ==
LOC: RAD 13:06
PROVIDERS: PCP Physician Assistant Medical; Visit Provider Internal Medicine Hematology & Oncology
DX: S32.10XA Unspecified fracture of sacrum, initial encounter for closed fracture (principal); M85.89 Other specified disorders of bone density and structure, multiple sites; C50.912 Malignant neoplasm of unspecified site of left female breast; C54.1 Malignant neoplasm of endometrium
CPT/HCPCS: 77080

== ENCOUNTER 2025-03-28 07:34 | Outpatient (CLI) | payer MEDICARE, BC, SELFPAY ==
--- NOTE | 2025-03-28 08:15 | CRLHL7_ITS ---
For Patients: As a result of the Century Cures Act, medical imaging exams and procedure reports are released immediately into your electronic medical record. You may view this report before your referring provider. If you have questions, please contact your health care provider. INDICATION: History of uterine cancer TECHNIQUE: 1.5 T MRI pelvis performed with pre and post-contrast T1 weighted imaging; T2 weighted imaging. 20 mL Dotarem IV COMPARISON: Pelvic MRI 01/01/2025 FINDINGS: Uterus: Prior hysterectomy. No evidence of recurrence at the surgical margin. Vaginal cuff: Unremarkable Ovaries/adnexa: Not seen bilaterally. These may be atrophic or surgically resected. Please correlate with procedural history. Remaining pelvis: Limited evaluation of the abdominal viscera demonstrates normal appearance of the urinary bladder. Colonic diverticulosis Vasculature: The iliac arteries are patent. Lymph nodes: No enlarged lymph nodes within the pelvis. Peritoneal space: No free fluid within the pelvis. Unchanged serpiginous left inguinal fluid collection. Musculoskeletal: Unchanged bilateral sacral insufficiency fractures. No new fractures appreciated within the imaged pelvis IMPRESSION: 1. No evidence of recurrence at the surgical margin. No metastatic disease within the pelvis. 2. Unchanged bilateral sacral insufficiency fractures. Dictated by Mary Roberson MD @ 03/28/2025 10:20:11 AM (Electronically Signed)
== END 2025-03-28 07:35 | disposition home or self-care (01) ==
LOC: MRI 07:35
PROVIDERS: PCP Physician Assistant Medical; Visit Provider Internal Medicine Hematology & Oncology
DX: C54.1 Malignant neoplasm of endometrium (principal); C50.912 Malignant neoplasm of unspecified site of left female breast
CPT/HCPCS: 72197; A9575

== ENCOUNTER 2025-03-29 14:55 | Outpatient (CLI) | payer MEDICARE, BC, SELFPAY ==
--- NOTE | 2025-03-29 16:00 | CRLHL7_ITS ---
For Patients: As a result of the Century Cures Act, medical imaging exams and procedure reports are released immediately into your electronic medical record. You may view this report before your referring provider. If you have questions, please contact your health care provider. CLINICAL HISTORY: Endometrial cancer. TECHNIQUE: Following IV injection of 03-stkmvr-3-deoxyglucose (FDG) and a standard uptake period of approximately 60 minutes, a non-contrast CT scan followed by a PET scan were acquired along the length of the body from the top of the head to the feet. The non-contrast CT was used for anatomic localization and photon attenuation correction of the PET scan. Blood Glucose Level (mg/dL): 92 FDG Dose (mCi): 15.4 COMPARISON: Pelvic MRI dated [address] scans of the chest, abdomen, and pelvis dated 01 January 2025 and 02 October 2024. FINDINGS: Head/Neck: No abnormal activity identified in the head and neck. Chest: Right-sided Port-A-Cath. No mediastinal or hilar adenopathy. No axillary adenopathy. The lungs show no focal pulmonary opacities. No pneumothorax. Scattered increased activity in the esophagus with no corresponding CT abnormality, SUV max 9.5. Abdomen/Pelvis: No focal abnormalities identified in the visualized portions of the liver, pancreas, adrenal glands, and kidneys. No hydronephrosis. 6.1 cm cyst in the spleen. The spleen is otherwise unremarkable. Colonic diverticulosis. Increased activity in the anal canal with no corresponding CT abnormality, SUV max 8.6. The remainder of the GI tract is incompletely distended but shows no gross abnormalities. No retroperitoneal, pelvic sidewall, or mesenteric adenopathy. A few small cysts in the left inguinal region showed no activity. Hysterectomy. Bones: Intramedullary donell in the right tibia. Bilateral knee arthroplasties. Degenerative and mild scoliotic changes of the spine. Bilateral sacral insufficiency fractures. No abnormal skeletal activity identified. IMPRESSION: 1. Hysterectomy. 2. No metastatic disease identified. 3. Increased activity in the esophagus and the anal canal with no corresponding CT abnormality may be physiologic. Dictated by Gavin Tamez MD @ 04/02/2025 8:07:32 AM (Electronically Signed)
== END 2025-03-29 14:56 | disposition home or self-care (01) ==
LOC: RAD 14:56
PROVIDERS: PCP Physician Assistant Medical; Visit Provider Internal Medicine Hematology & Oncology
DX: C54.1 Malignant neoplasm of endometrium (principal)
CPT/HCPCS: 78816; A9552

== ENCOUNTER 2025-05-10 11:30 | Outpatient (RCR) | payer MEDICARE, BC, SELFPAY ==
[2025-01-01 08:40] LABS: Hematocrit* 35.2 % (33.0-51.0); Hemoglobin* 11.0 gm/dL (12.0-16.0); Immature Granulocytes Pct Auto 0.2 %; Mean Corpuscular HGB Conc 31 gm/dL (32-36); Mean Corpuscular Hemoglobin 31 pg (26-34); Mean Corpuscular Volume 99 fL (80-100); RDW Coefficient of Variation % 13.4 % (11.5-15.5); Red Blood Count* 3.57 m/uL (4.00-5.20); White Blood Count* 4.46 K/uL (4.50-11.00)
[2025-01-01 08:44] LABS: Immature Granulocytes Abs Auto 0.00 K/uL (0.00-0.30); Lymphocytes Absolute Auto 0.70 K/uL (0.90-2.90); Slide Review Reflex No
[2025-01-01 08:58] LABS: Albumin* 3.9 g/dL (3.3-5.0); Chloride* 108 mmol/L (96-114); Potassium* 4.5 mmol/L (3.6-5.1); Sodium* 140 mmol/L (135-149)
[2025-01-01 09:00] LABS: Alanine Aminotransferase* 33 U/L (4-35); Anion Gap 9 mEq/L (7-15); Aspartate Amino Transferase* 28 U/L (12-35); Blood Urea Nitrogen* 33 mg/dL (7-30); Carbon Dioxide* 23 mmol/L (20-32); Creatinine* 1.3 mg/dL (0.5-1.5); Est. Creatinine Clearance* 30.48; Estimated Glomerular Filt Rate 43 ml/min
[2025-01-01 09:01] LABS: Alkaline Phosphatase* 132 U/L (40-150); Bilirubin Total* 0.5 mg/dL (0.1-1.5); Calcium* 9.8 mg/dL (8.4-10.6); Glucose* 86 mg/dL (60-115); Total Protein* 6.8 g/dL (6.0-8.3)
[2025-01-01] MEDS: SODIUM CHLORIDE 0.9 % (FLUSH) 10 ML SYRINGE IVF (10:48)
[2025-01-01] MEDS: HEPARIN 500 UNIT/5 ML SYRINGE IVF (10:48)
[2025-01-17 09:01] VITALS: BP 112/68; PULSE 68; RESP 18; TEMP 36.7; O2SAT 96
[2025-01-17 09:46] LABS: Hematocrit* 34.9 % (33.0-51.0); Hemoglobin* 11.2 gm/dL (12.0-16.0); Immature Granulocytes Pct Auto 0.2 %; Mean Corpuscular HGB Conc 32 gm/dL (32-36); Mean Corpuscular Hemoglobin 31 pg (26-34); Mean Corpuscular Volume 96 fL (80-100); RDW Coefficient of Variation % 13.3 % (11.5-15.5); Red Blood Count* 3.64 m/uL (4.00-5.20); White Blood Count* 4.22 K/uL (4.50-11.00)
[2025-01-17 09:51] LABS: Immature Granulocytes Abs Auto 0.00 K/uL (0.00-0.30); Lymphocytes Absolute Auto 0.60 K/uL (0.90-2.90); Slide Review Reflex No
[2025-01-17 09:52] LABS: Albumin* 3.8 g/dL (3.3-5.0); Chloride* 105 mmol/L (96-114)
[2025-01-17 09:53] LABS: Potassium* 4.1 mmol/L (3.6-5.1); Sodium* 139 mmol/L (135-149)
[2025-01-17 09:55] LABS: Blood Urea Nitrogen* 25 mg/dL (7-30); Creatinine* 1.2 mg/dL (0.5-1.5); Est. Creatinine Clearance* 33.02; Estimated Glomerular Filt Rate 48 ml/min
[2025-01-17 09:56] LABS: Alanine Aminotransferase* 21 U/L (4-35); Alkaline Phosphatase* 106 U/L (40-150); Anion Gap 8 mEq/L (7-15); Aspartate Amino Transferase* 28 U/L (12-35); Bilirubin Total* 0.5 mg/dL (0.1-1.5); Calcium* 10.0 mg/dL (8.4-10.6); Carbon Dioxide* 26 mmol/L (20-32); Glucose* 101 mg/dL (60-115); Total Protein* 6.6 g/dL (6.0-8.3)
[2025-01-17] MEDS: PEMBROLIZUMAB 200 MG, TUBING PRIMARY 1 EACH, In-line 0.2 micron filter set 1 EACH in 0.... 216 MG IVPB (11:28)
[2025-01-17] MEDS: SODIUM CHLORIDE 0.9 % (FLUSH) 10 ML SYRINGE IVF ×2 (11:31→12:02)
[2025-01-17] MEDS: HEPARIN 500 UNIT/5 ML SYRINGE IVF (12:02)
--- NOTE | 2025-01-18 15:44 | ONC.NURNOTE ---
Called pt to check on her after keytruda yesterday. Pt states she is doing well and stated she is tired today. Instructed pt to call with any questions or concerns.
[2025-02-05 10:14] LABS: Hematocrit* 35.4 % (33.0-51.0); Hemoglobin* 11.3 gm/dL (12.0-16.0); Immature Granulocytes Pct Auto 0.3 %; Mean Corpuscular HGB Conc 32 gm/dL (32-36); Mean Corpuscular Hemoglobin 30 pg (26-34); Mean Corpuscular Volume 95 fL (80-100); RDW Coefficient of Variation % 13.2 % (11.5-15.5); Red Blood Count* 3.72 m/uL (4.00-5.20); White Blood Count* 3.85 K/uL (4.50-11.00)
[2025-02-05 10:16] LABS: Immature Granulocytes Abs Auto 0.00 K/uL (0.00-0.30); Lymphocytes Absolute Auto 0.70 K/uL (0.90-2.90)
[2025-02-05 10:17] LABS: Slide Review Reflex No
[2025-02-05 10:30] LABS: Albumin* 3.8 g/dL (3.3-5.0); Chloride* 106 mmol/L (96-114); Potassium* 4.3 mmol/L (3.6-5.1); Sodium* 137 mmol/L (135-149)
[2025-02-05 10:32] LABS: Blood Urea Nitrogen* 22 mg/dL (7-30); Creatinine* 1.2 mg/dL (0.5-1.5); Est. Creatinine Clearance* 33.02; Estimated Glomerular Filt Rate 48 ml/min
[2025-02-05 10:33] LABS: Alanine Aminotransferase* 45 U/L (4-35); Alkaline Phosphatase* 109 U/L (40-150); Anion Gap 6 mEq/L (7-15); Aspartate Amino Transferase* 33 U/L (12-35); Bilirubin Total* 0.4 mg/dL (0.1-1.5); Calcium* 9.9 mg/dL (8.4-10.6); Carbon Dioxide* 25 mmol/L (20-32); Glucose* 95 mg/dL (60-115); Total Protein* 6.9 g/dL (6.0-8.3)
[2025-02-06] MEDS: SODIUM CHLORIDE 0.9 % (FLUSH) 10 ML SYRINGE IVF ×2 (09:55→10:38)
[2025-02-06] MEDS: PEMBROLIZUMAB 200 MG, TUBING PRIMARY 1 EACH, In-line 0.2 micron filter set 1 EACH in 0.... 216 MG IVPB (10:04)
[2025-02-06] MEDS: HEPARIN 500 UNIT/5 ML SYRINGE IVF (10:38)
[2025-02-26 10:34] LABS: Hematocrit* 36.4 % (33.0-51.0); Hemoglobin* 11.6 gm/dL (12.0-16.0); Immature Granulocytes Pct Auto 0.3 %; Mean Corpuscular HGB Conc 32 gm/dL (32-36); Mean Corpuscular Hemoglobin 30 pg (26-34); Mean Corpuscular Volume 95 fL (80-100); RDW Coefficient of Variation % 13.5 % (11.5-15.5); Red Blood Count* 3.85 m/uL (4.00-5.20); White Blood Count* 3.76 K/uL (4.50-11.00)
[2025-02-26] MEDS: HEPARIN 500 UNIT/5 ML SYRINGE IVF (10:42)
[2025-02-26] MEDS: SODIUM CHLORIDE 0.9 % (FLUSH) 10 ML SYRINGE IVF (10:43)
[2025-02-26 10:44] LABS: Immature Granulocytes Abs Auto 0.00 K/uL (0.00-0.30); Lymphocytes Absolute Auto 0.80 K/uL (0.90-2.90); Slide Review Reflex No
[2025-02-26 10:48] LABS: Albumin* 3.8 g/dL (3.3-5.0); Chloride* 105 mmol/L (96-114); Potassium* 4.2 mmol/L (3.6-5.1); Sodium* 138 mmol/L (135-149)
[2025-02-26 10:51] LABS: Alanine Aminotransferase* 20 U/L (4-35); Alkaline Phosphatase* 90 U/L (40-150); Anion Gap 8 mEq/L (7-15); Aspartate Amino Transferase* 27 U/L (12-35); Bilirubin Total* 0.5 mg/dL (0.1-1.5); Blood Urea Nitrogen* 25 mg/dL (7-30); Carbon Dioxide* 25 mmol/L (20-32); Creatinine* 1.3 mg/dL (0.5-1.5); Est. Creatinine Clearance* 30.48; Estimated Glomerular Filt Rate 43 ml/min; Total Protein* 6.6 g/dL (6.0-8.3)
[2025-02-26 10:52] LABS: Calcium* 10.1 mg/dL (8.4-10.6); Glucose* 93 mg/dL (60-115)
[2025-02-27] MEDS: PEMBROLIZUMAB 200 MG, TUBING PRIMARY 1 EACH, In-line 0.2 micron filter set 1 EACH in 0.... 216 MG IVPB (11:05)
[2025-02-27] MEDS: SODIUM CHLORIDE 0.9 % (FLUSH) 10 ML SYRINGE IVF ×2 (11:06→11:41)
[2025-02-27] MEDS: HEPARIN 500 UNIT/5 ML SYRINGE IVF (11:41)
[2025-03-20] MEDS: SODIUM CHLORIDE 0.9 % (FLUSH) 10 ML SYRINGE IVF (09:32)
[2025-03-20] MEDS: HEPARIN 500 UNIT/5 ML SYRINGE IVF (09:32)
[2025-03-20 09:48] LABS: Hematocrit* 35.4 % (33.0-51.0); Hemoglobin* 11.3 gm/dL (12.0-16.0); Immature Granulocytes Pct Auto 0.3 %; Mean Corpuscular HGB Conc 32 gm/dL (32-36); Mean Corpuscular Hemoglobin 30 pg (26-34); Mean Corpuscular Volume 95 fL (80-100); RDW Coefficient of Variation % 13.8 % (11.5-15.5); Red Blood Count* 3.73 m/uL (4.00-5.20); White Blood Count* 3.73 K/uL (4.50-11.00)
[2025-03-20 09:49] LABS: Immature Granulocytes Abs Auto 0.00 K/uL (0.00-0.30); Lymphocytes Absolute Auto 0.80 K/uL (0.90-2.90); Slide Review Reflex No
[2025-03-20 10:05] LABS: Albumin* 3.6 g/dL (3.3-5.0); Chloride* 108 mmol/L (96-114); Potassium* 4.2 mmol/L (3.6-5.1); Sodium* 139 mmol/L (135-149)
[2025-03-20 10:07] LABS: Blood Urea Nitrogen* 31 mg/dL (7-30); Creatinine* 1.3 mg/dL (0.5-1.5); Est. Creatinine Clearance* 30.48; Estimated Glomerular Filt Rate 43 ml/min
[2025-03-20 10:08] LABS: Alanine Aminotransferase* 19 U/L (4-35); Alkaline Phosphatase* 84 U/L (40-150); Anion Gap 6 mEq/L (7-15); Aspartate Amino Transferase* 27 U/L (12-35); Bilirubin Total* 0.6 mg/dL (0.1-1.5); Calcium* 9.4 mg/dL (8.4-10.6); Carbon Dioxide* 25 mmol/L (20-32); Glucose* 91 mg/dL (60-115); Total Protein* 6.3 g/dL (6.0-8.3)
[2025-03-21 09:26] VITALS: BP 101/65; PULSE 69; RESP 15; TEMP 36.6; O2SAT 96
[2025-03-21] MEDS: PEMBROLIZUMAB 200 MG, TUBING PRIMARY 1 EACH, In-line 0.2 micron filter set 1 EACH in 0.... 216 MG IVPB (10:06)
[2025-03-21] MEDS: SODIUM CHLORIDE 0.9 % (FLUSH) 10 ML SYRINGE IVF (10:44)
[2025-03-21] MEDS: HEPARIN 500 UNIT/5 ML SYRINGE IVF (10:44)
[2025-03-28] MEDS: HEPARIN 500 UNIT/5 ML SYRINGE IVF (08:54)
[2025-03-28] MEDS: SODIUM CHLORIDE 0.9 % (FLUSH) 10 ML SYRINGE IVF (08:54)
[2025-03-29] MEDS: HEPARIN 500 UNIT/5 ML SYRINGE IVF (15:59)
[2025-03-29] MEDS: SODIUM CHLORIDE 0.9 % (FLUSH) 10 ML SYRINGE IVF (15:59)
[2025-04-09 08:51] LABS: Hematocrit* 36.2 % (33.0-51.0); Hemoglobin* 11.6 gm/dL (12.0-16.0); Immature Granulocytes Pct Auto 0.3 %; Mean Corpuscular HGB Conc 32 gm/dL (32-36); Mean Corpuscular Hemoglobin 30 pg (26-34); Mean Corpuscular Volume 94 fL (80-100); RDW Coefficient of Variation % 13.7 % (11.5-15.5); Red Blood Count* 3.85 m/uL (4.00-5.20); White Blood Count* 3.73 K/uL (4.50-11.00)
[2025-04-09 08:57] LABS: Albumin* 3.5 g/dL (3.3-5.0); Chloride* 105 mmol/L (96-114); Potassium* 4.0 mmol/L (3.6-5.1); Sodium* 138 mmol/L (135-149)
[2025-04-09 08:58] LABS: Immature Granulocytes Abs Auto 0.00 K/uL (0.00-0.30); Lymphocytes Absolute Auto 0.80 K/uL (0.90-2.90); Slide Review Reflex No
[2025-04-09 09:00] LABS: Alanine Aminotransferase* 18 U/L (4-35); Alkaline Phosphatase* 81 U/L (40-150); Anion Gap 5 mEq/L (7-15); Aspartate Amino Transferase* 26 U/L (12-35); Bilirubin Total* 0.4 mg/dL (0.1-1.5); Blood Urea Nitrogen* 26 mg/dL (7-30); Carbon Dioxide* 28 mmol/L (20-32); Creatinine* 1.2 mg/dL (0.5-1.5); Est. Creatinine Clearance* 33.02; Estimated Glomerular Filt Rate 48 ml/min; Total Protein* 6.2 g/dL (6.0-8.3)
[2025-04-09 09:01] LABS: Calcium* 9.4 mg/dL (8.4-10.6); Glucose* 87 mg/dL (60-115)
[2025-04-09] MEDS: SODIUM CHLORIDE 0.9 % (FLUSH) 10 ML SYRINGE IVF (09:31)
[2025-04-09] MEDS: HEPARIN 500 UNIT/5 ML SYRINGE IVF (09:31)
[2025-04-10 10:27] VITALS: BP 133/79; PULSE 69; RESP 18; TEMP 36.4; O2SAT 97
[2025-04-10] MEDS: PEMBROLIZUMAB 200 MG, TUBING PRIMARY 1 EACH, In-line 0.2 micron filter set 1 EACH in 0.... 216 MG IVPB (11:00)
[2025-04-10] MEDS: SODIUM CHLORIDE 0.9 % (FLUSH) 10 ML SYRINGE IVF (11:37)
[2025-04-10] MEDS: HEPARIN 500 UNIT/5 ML SYRINGE IVF (11:37)
[2025-05-03 10:46] LABS: Hematocrit* 38.6 % (33.0-51.0); Hemoglobin* 12.5 gm/dL (12.0-16.0); Immature Granulocytes Abs Auto 0.00 K/uL (0.00-0.30); Immature Granulocytes Pct Auto 0.0 %; Mean Corpuscular HGB Conc 32 gm/dL (32-36); Mean Corpuscular Hemoglobin 31 pg (26-34); Mean Corpuscular Volume 94 fL (80-100); RDW Coefficient of Variation % 13.7 % (11.5-15.5); Red Blood Count* 4.10 m/uL (4.00-5.20); White Blood Count* 3.93 K/uL (4.50-11.00)
[2025-05-03 10:58] LABS: Chloride* 103 mmol/L (96-114)
[2025-05-03 10:59] LABS: Albumin* 3.8 g/dL (3.3-5.0); Lymphocytes Absolute Auto 1.10 K/uL (0.90-2.90); Potassium* 3.8 mmol/L (3.6-5.1); Slide Review Reflex No; Sodium* 137 mmol/L (135-149)
[2025-05-03 11:01] LABS: Alanine Aminotransferase* 32 U/L (4-35); Anion Gap 10 mEq/L (7-15); Aspartate Amino Transferase* 35 U/L (12-35); Blood Urea Nitrogen* 31 mg/dL (7-30); Carbon Dioxide* 24 mmol/L (20-32); Creatinine* 1.2 mg/dL (0.5-1.5); Est. Creatinine Clearance* 33.02; Estimated Glomerular Filt Rate 48 ml/min
[2025-05-03 11:02] LABS: Alkaline Phosphatase* 100 U/L (40-150); Bilirubin Total* 0.4 mg/dL (0.1-1.5); Calcium* 9.4 mg/dL (8.4-10.6); Glucose* 106 mg/dL (60-115); Total Protein* 6.7 g/dL (6.0-8.3)
[2025-05-04 12:50] VITALS: BP 103/67; PULSE 80; RESP 16; TEMP 37.1; O2SAT 96
--- NOTE | 2025-05-04 14:04 | ONC.NURNOTE ---
Patient arrived with mask in place stating I have a bad cold, Went around the family. Patient with oral temperature of 98.7-denies fever-productive cough with white/clear sputum-does state increased SOB with exertion then usual. Decreased BS to LLL with inspiratory wheeze present in JANNETTE Cough sounds loose
[2025-05-10 11:30] VITALS: BP 114/71; PULSE 66; RESP 16; TEMP 36.6; O2SAT 99
[2025-05-10 11:36] LABS: Hematocrit* 38.7 % (33.0-51.0); Hemoglobin* 12.5 gm/dL (12.0-16.0); Immature Granulocytes Abs Auto 0.01 K/uL (0.00-0.30); Immature Granulocytes Pct Auto 0.2 %; Mean Corpuscular HGB Conc 32 gm/dL (32-36); Mean Corpuscular Hemoglobin 31 pg (26-34); Mean Corpuscular Volume 95 fL (80-100); RDW Coefficient of Variation % 13.8 % (11.5-15.5); Red Blood Count* 4.09 m/uL (4.00-5.20); White Blood Count* 5.14 K/uL (4.50-11.00)
[2025-05-10 11:42] LABS: Lymphocytes Absolute Auto 0.90 K/uL (0.90-2.90)
[2025-05-10 11:43] LABS: Slide Review Reflex No
[2025-05-10 13:27] LABS: Anion Gap 10 mEq/L (7-15); Blood Urea Nitrogen* 31 mg/dL (7-30); Calcium* 9.9 mg/dL (8.4-10.6); Carbon Dioxide* 25 mmol/L (20-32); Chloride* 102 mmol/L (96-114); Creatinine* 1.3 mg/dL (0.5-1.5); Est. Creatinine Clearance* 30.48; Estimated Glomerular Filt Rate 43 ml/min; Glucose* 89 mg/dL (60-115); Potassium* 4.2 mmol/L (3.6-5.1); Sodium* 137 mmol/L (135-149)
[2025-05-10] MEDS: SODIUM CHLORIDE 0.9 % (FLUSH) 10 ML SYRINGE IVF ×2 (13:49→14:22)
[2025-05-10] MEDS: PEMBROLIZUMAB 200 MG, TUBING PRIMARY 1 EACH, In-line 0.2 micron filter set 1 EACH in 0.... 216 MG IVPB (13:49)
[2025-05-10] MEDS: HEPARIN 500 UNIT/5 ML SYRINGE IVF (14:22)
== END 2025-05-26 23:59 | disposition home or self-care (01) ==
LOC: CCIC 11:30
PROVIDERS: Clinical Nurse Specialist; PCP Physician Assistant Medical; Referring Provider Physician Assistant Medical; Visit Provider Internal Medicine Hematology & Oncology
DX: Z51.12 Encounter for antineoplastic immunotherapy (principal); C50.912 Malignant neoplasm of unspecified site of left female breast; Z17.0 Estrogen receptor positive status [ER+]; C54.1 Malignant neoplasm of endometrium
CPT/HCPCS: 36415; 36591; 71260; 72197; 74177; 80048; 80053; 84443; 85025; 86304; 96413; 99211; 99214; 99215; G0463; A9575; J1642; J9271; Q9967

== ENCOUNTER 2025-06-25 08:59 | Outpatient (CLI) | payer MEDICARE, BC, SELFPAY ==
--- NOTE | 2025-06-25 09:15 | CRLHL7_ITS ---
For Patients: As a result of the Century Cures Act, medical imaging exams and procedure reports are released immediately into your electronic medical record. You may view this report before your referring provider. If you have questions, please contact your health care provider. INDICATION: Hysterectomy for endometrial carcinoma TECHNIQUE: Pelvic MRI. Multiplanar T1 and T2 weighted images. Diffusion-weighted imaging. Postcontrast images. Intravenous gadolinium 21 cc Dotarem Comparison : Pelvic MRI March 28, 2025 FINDINGS: Scan quality: Images are slightly degraded by motion on the postcontrast sequences. Uterus: Absent. Cervix: Absent. Vagina: Susceptibility from surgical changes at the vaginal cuff. No change. No obvious mass. There is a right Bartholin`s cyst with no change Ovaries and adnexal regions: No new masses. Ovaries are not identified. Cul-de-sac: No free fluid. No obvious peritoneal implant Lymph nodes: No new suspicious enlargement. Miscellaneous pelvis: Stable appearance of the skeletal structures with signal changes in the sacrum from insufficiency fractures as previously described. Fluid signal in the left inguinal region similar to previous this is just cephalad to the left pubic ramus. IMPRESSION: 1. No change. Hysterectomy. 2. No sign of recurrence or metastatic lesion. 3. Stable small seroma in the left inguinal region. Dictated by Zhang Connelly MD @ 06/26/2025 11:54:45 AM (Electronically Signed)
== END 2025-06-25 09:00 | disposition home or self-care (01) ==
LOC: MRI 09:00
PROVIDERS: PCP Physician Assistant Medical; Visit Provider Internal Medicine Hematology & Oncology
DX: Z85.42 Personal history of malignant neoplasm of other parts of uterus (principal); Z90.710 Acquired absence of both cervix and uterus; N75.0 Cyst of Bartholin's gland; L76.32 Postprocedural hematoma of skin and subcutaneous tissue following other procedure; Z87.81 Personal history of (healed) traumatic fracture
CPT/HCPCS: 72197; A9575